=== PATIENT | male | born 1945 | race Caucasian/White ===

== ENCOUNTER 2018-12-17 09:57 | Day surgery (SDC) | payer MEDICARE ==
[2018-12-15 15:46] VITALS: BMI 29.9
--- NOTE | 2018-12-16 14:18 | HP ---
HISTORY AND PHYSICAL DATE OF SURGERY: 12/17/2018 Josué Diaz IS a 73-year-old patient seen with symptomatic right carpal tunnel syndrome. We discussed treatment options. He elected to proceed with decompression right median nerve. Consent was obtained. PAST MEDICAL HISTORY: Hypertension, hyperlipidemia, hypothyroidism, insulin-dependent diabetes. PAST SURGICAL HISTORY: Bilateral shoulder arthroscopy, laminectomy, right knee patellar tendon repair. DAILY MEDICATIONS: Meclizine, atorvastatin, hydrochlorothiazide, levothyroxine, metoprolol, Novolin. ALLERGIES: None. SOCIAL HISTORY: Denies tobacco use. PHYSICAL EVALUATION OF THE RIGHT HAND: He has positive carpal compression, carpal Tinel's causing numbness and tingling throughout the median nerve distribution. He has decreased sensation throughout the median nerve distribution. There is a good pulse present. He is nontender along the A1 salty areas. His distal neurovascular exam is intact. Radiographs of the right hand revealed mild osteoarthritis. An EMG of the upper extremities revealed carpal tunnel syndrome. IMPRESSION: Right carpal tunnel syndrome. PLAN: Decompression right median nerve. MMODL / IJN: [id number] /
[~2018-12-17 09:57] MED LIST: HYDROmorphone 0.5 MG/0.5 ML SYRINGE IVP PRN; MIDAZOLAM (PF) 2 MG/2 ML VIAL IV PRN; ceFAZolin IN SWFI 2 GM/20 ML SYRINGE IVP ONE
[2018-12-17 10:57] LABS: Glucose,Whole Blood 118 mg/dL (75-99)
[2018-12-17 10:58] VITALS: RESP 16; TEMP 97.3
[2018-12-17] MEDS ORDERED: LIDOCAINE 1% 20 ML VIAL (10MG/ML) FOR IV START INTRADERMA ONE (10:58)
[2018-12-17] MEDS: LACTATED RINGERS 1,000 ML IV SCH ×2 (10:58→11:49)
[2018-12-17] MEDS ORDERED: ONDANSETRON 4 MG/2 ML VIAL IVP ONE (10:59)
[2018-12-17] MEDS ORDERED: ROPIVACAINE 5 MG/ML 30 ML VIAL MISCELLANE ONE ×2 (11:51)
[2018-12-17] MEDS ORDERED: MIDAZOLAM 2 MG/2 ML VIAL ONE (11:51)
[2018-12-17] MEDS ORDERED: fentaNYL (PF) 50 MCG/ML 2 ML AMP ONE (11:51)
--- NOTE | 2018-12-17 12:23 | P.OP ---
Date of Procedure: 12/17/18 Preoperative Diagnosis: Right carpal tunnel syndrome Postoperative Diagnosis: same Procedure(s) Performed: Decompression right median nerve Anesthesia: MAC, local Surgeon: Kurtis Vidal Estimated Blood Loss (ml): 0 Pathology: none sent Condition: stable Disposition: PACU Indications for Procedure: 73-year-old patient seen was symptomatic right carpal tunnel syndrome. After having treatment options discussed, he elected to proceed with decompression. Operative Findings: see description of procedure Description of Procedure: Patient was taken to the operative suite. Patient received preoperative IV antibiotics. Well-padded tourniquet placed proximal right upper extremity. The right upper extremity was prepped and draped in the normal sterile orthopedic fashion. The extremity was elevated and tourniquet insufflated to 250. An incision was made being of the distal volar wrist crease extending distally approximately 3 cm in line with the fourth metacarpal sharply through skin. Dissection taken down through the palmar fascia to the transverse carpal ligament. I now incised the transverse carpal ligament. I released the transverse carpal ligament proximally and distally with blunt Metzenbaums. There was complete release of the ligament noted and good decompression of the nerve. We had good hemostasis. The skin was approximate nylon suture. The tourniquet was released with immediate capillary refill of all digits noted. Sterile dressings were applied. Sterile web roll and Kevin bandage were applied. Patient was awakened and transferred to recovery in stable condition.
[2018-12-17 13:00] VITALS: BP 152/81; PULSE 52
== END 2018-12-17 13:02 | disposition home or self-care (01) ==
LOC: OR 09:57
PROVIDERS: ATTEND Orthopaedic Surgery
DX: G56.01 Carpal tunnel syndrome, right upper limb (principal); I10 Essential (primary) hypertension; E78.5 Hyperlipidemia, unspecified; E03.9 Hypothyroidism, unspecified; E11.40 Type 2 diabetes mellitus with diabetic neuropathy, unspecified; Z79.4 Long term (current) use of insulin; I25.10 Atherosclerotic heart disease of native coronary artery without angina pectoris; M10.9 Gout, unspecified; Z95.1 Presence of aortocoronary bypass graft; Z79.899 Other long term (current) drug therapy; Z79.890 Hormone replacement therapy; Z88.6 Allergy status to analgesic agent
CPT/HCPCS: 64721; J2250; J2405; J3010; J2795

== ENCOUNTER 2019-01-15 06:04 | Day surgery (SDC) | payer MEDICARE ==
--- NOTE | 2019-01-14 17:24 | HP ---
HISTORY AND PHYSICAL DATE OF SURGERY: 01/15/2019 Josué Diaz is a 73-year-old patient seen with symptomatic left carpal tunnel syndrome along with a left ring finger trigger finger. Treatment options were discussed. He elected to proceed with surgical decompression of the nerve and release of the left ring finger. Consent regarding the procedure was obtained. PAST MEDICAL HISTORY: 1. Hypertension. 2. Hyperlipidemia. 3. Hypothyroidism. 4. Insulin-dependent diabetes. PAST SURGICAL HISTORY: 1. Laminectomy. 2. Bilateral shoulder arthroscopy. 3. Right knee patellar tendon repair. DAILY MEDICATIONS: 1. Meclizine. 2. Atorvastatin. 3. Hydrochlorothiazide. 4. Levothyroxine. 5. Metoprolol. 6. Novolin insulin. ALLERGIES: NONE. SOCIAL HISTORY: He denies tobacco use. PHYSICAL EVALUATION OF THE LEFT HAND: Positive carpal compression, carpal Tinel's causing numbness to the median nerve distribution. Tenderness along the A1 salty area, left ring finger with clicking and catching. Good perfusion. Some decreased sensation on the median nerve distribution. Good radial pulse present. EMG revealed carpal tunnel syndrome. IMPRESSION: 1. Left carpal tunnel syndrome. 2. Left ring finger trigger finger. PLAN: 1. Decompression of left median nerve. 2. Release A1 salty, left ring finger. MMODL / IJN: [id number] /
[~2019-01-15 06:04] MED LIST changes: +LACTATED RINGERS 1,000 ML IV SCH; +LIDOCAINE 1% 20 ML VIAL (10MG/ML) FOR IV START INTRADERMA PRN; -MIDAZOLAM (PF) 2 MG/2 ML VIAL IV PRN; +ONDANSETRON 4 MG/2 ML VIAL IVP ONE
[2019-01-15 07:04] VITALS: RESP 16; TEMP 97.7
[2019-01-15 07:14] LABS: Glucose,Whole Blood 153 mg/dL (75-99)
[2019-01-15 07:28] LABS: Basophils % (A) 1 %; Eosinophils # (A) 0.4 k/uL (0-0.7); Eosinophils % (A) 9 %; HCT 41.1 % (39.0-53.0); HGB 13.5 gm/dL (13.0-17.5); Lymphocytes # (A) 0.9 k/uL (1.0-4.8); Lymphocytes % (A) 21 %; MCH 31.3 pg (25.0-35.0); MCHC 32.9 g/dL (31.0-37.0); MCV 95.2 fL (80.0-100.0); Monocytes # (A) 0.5 k/uL (0-1.0); Monocytes % (A) 12 %; Neutrophils # (A) 2.3 k/uL (1.3-7.7); Neutrophils % (A) 55 %; Platelet Count 167 k/uL (150-450); RBC 4.32 m/uL (4.30-5.90); RDW 15.1 % (11.5-15.5); WBC 4.2 k/uL (3.8-10.6)
[2019-01-15] MEDS ORDERED: MIDAZOLAM 2 MG/2 ML VIAL ONE (07:30)
[2019-01-15] MEDS ORDERED: fentaNYL (PF) 50 MCG/ML 2 ML AMP ONE (07:30)
[2019-01-15] MEDS ORDERED: PROPOFOL 10 MG/ML 20 ML VIAL IV ONE (07:30)
[2019-01-15] MEDS ORDERED: LIDOCAINE 1% INJ 10MG/ML (20 ML MDV) ONE (07:30)
[2019-01-15 07:32] LABS: Calcium 9.2 mg/dL (8.4-10.2); Potassium 5.6 mmol/L (3.5-5.1)
[2019-01-15] MEDS ORDERED: ROPIVACAINE 5 MG/ML 30 ML VIAL MISCELLANE ONE (07:48)
--- NOTE | 2019-01-15 08:10 | P.OP ---
Date of Procedure: 01/15/19 Preoperative Diagnosis: 1. Left carpal tunnel syndrome 2. Left ring finger trigger finger Postoperative Diagnosis: Same Procedure(s) Performed: 1. Decompression left median nerve 2. Release A1 salty left ring finger Anesthesia: MAC, local Surgeon: Kurtis Vidal Estimated Blood Loss (ml): 1 Pathology: none sent Condition: stable Disposition: PACU Indications for Procedure: 73-year-old patient seen with symptomatic left carpal tunnel syndrome. He also symptomatic left ring finger trigger finger. We discussed options. He elected to proceed with surgical intervention. Consent regarding the procedure was obtained. Operative Findings: See description of procedure Description of Procedure: Patient was taken to the operative suite. The patient seemed preoperative IV antibiotics. The patient underwent IV sedation by the department of anesthesia. A well-padded tourniquet was placed proximal left upper extremity. Left upper extremity was prepped and draped in normal sterile orthopedic fashion. The proposed incision sites were infiltrated with local analgesic. Once sufficient local analgesia was noted the extremity was elevated and tourniquet was insufflated to 250. I made an incision beginning at the distal volar wrist crease extending distally along the lines of the fourth metacarpal 3 cm sharply through skin. Dissection was taken down through the palmar fascia to the transverse carpal ligament. I incised the transverse carpal ligament. I released it proximally and distally with blunt Metzenbaums. There was complete release of the transcarpal ligament and good decompression of the nerve. I now turned my attention to the A1 salty area of the left ring finger. An incision was made in that area. Dissection was taken down to the A1 salty area. I incised the A1 salty. I released approximately distally with blunt tenotomies. There was complete release of the A1 salty and good excursion of the tendon. Both wounds were irrigated with saline. Both incisions were proximal nylon suture. Sterile dressings were applied. The tourniquet was released with immediate capillary refill of all digits noted. Sterile webril and Kevin bandage were applied. The patient was then awakened, transferred to recovery stable condition.
[2019-01-15 08:32] LABS: Glucose,Whole Blood 139 mg/dL (75-99)
[2019-01-15 09:00] VITALS: BP 142/67; PULSE 54
== END 2019-01-15 09:20 | disposition home or self-care (01) ==
LOC: OR 06:04
PROVIDERS: ATTEND Orthopaedic Surgery
DX: G56.02 Carpal tunnel syndrome, left upper limb (principal); M65.342 Trigger finger, left ring finger; I10 Essential (primary) hypertension; E78.5 Hyperlipidemia, unspecified; E03.9 Hypothyroidism, unspecified; I25.10 Atherosclerotic heart disease of native coronary artery without angina pectoris; E07.9 Disorder of thyroid, unspecified; N28.9 Disorder of kidney and ureter, unspecified; E11.42 Type 2 diabetes mellitus with diabetic polyneuropathy; I25.2 Old myocardial infarction; M10.9 Gout, unspecified; Z95.1 Presence of aortocoronary bypass graft; Z79.82 Long term (current) use of aspirin; Z79.890 Hormone replacement therapy; Z79.4 Long term (current) use of insulin; Z79.899 Other long term (current) drug therapy; Z88.8 Allergy status to other drugs, medicaments and biological substances
CPT/HCPCS: 80048; 85025; 64721; 26055; J2250; J2405; J2001; J3010; J2795; J2704; J0690

== ENCOUNTER → 2019-07-02 | Outpatient (CLI) | payer MEDICARE ==
[2019-07-03 12:06] LABS: ANA Pattern Speckled; ANA Pattern 2 Nucleolar
== END ==
LOC: LABWHC1 10:59
PROVIDERS: ATTEND Dermatology Procedural Dermatology
DX: H61.031 Chondritis of right external ear (principal); L73.8 Other specified follicular disorders; L81.4 Other melanin hyperpigmentation; D18.01 Hemangioma of skin and subcutaneous tissue; M32.10 Systemic lupus erythematosus, organ or system involvement unspecified; M12.9 Arthropathy, unspecified; L82.1 Other seborrheic keratosis; B35.3 Tinea pedis; L57.0 Actinic keratosis; Z85.820 Personal history of malignant melanoma of skin
CPT/HCPCS: 36415; 86038; 86039

== ENCOUNTER → 2019-08-27 | Outpatient (CLI) | payer MEDICARE ==
--- NOTE | 2019-08-28 04:04 | CT ---
EXAMINATION TYPE: CT chest wo con DATE OF EXAM: 08/27/2019 COMPARISON: Correlation chest x-ray 08/28/2016 HISTORY: 73-year-old male abnormal CXR, Angina TECHNIQUE: Contiguous axial scanning of the chest without IV contrast. Coronal and sagittal reconstru ctions performed. CT DLP: 608 mGycm Automated exposure control for dose reduction was used. FINDINGS: Median sternotomy wires with post-CABG changes. Heart borderline to mildly enlarged without pericardial effusion. Aortic root mildly aneurysmal at 4.1 cm. Ascending aorta mildly aneurysmal at 4.4 cm. There is a dive rticulum off of the left vertebral artery directly from the aortic arch. Scattered mild atherosclerot ic calcifications are present especially within the aortic arch. No thoracic lymphadenopathy by CT size criteria. Some scattered hazy lower lung densities likely generalized atelectasis. No consolidation or pleural effusion. Visualized upper abdomen show splenic artery calcifications. Bilateral perinephric stranding likely s enescent change or secondary to underlying chronic kidney disease. Fat-containing midline epigastric hernia measuring 5.6 cm wide and 4.0 cm craniocaudal, refer to desmond nal image 4 and sagittal image 70. The tip of the xiphoid process curls anteriorly projecting in tear as well. Bones: Mild to moderate degenerative disc disease mid thoracic spine. Anterior endplate spondylosis m id to lower thoracic spine. IMPRESSION: 1. NO ACUTE PULMONARY PROCESS. POST-CABG CHANGES WITH BORDERLINE TO MILD CARDIOMEGALY. 2. IF THE PATIENT'S OUTSIDE ABNORMAL CHEST X-RAY IS MADE AVAILABLE, THE PRESENT EXAMINATION CAN BE RE VIEWED WITH CORRELATION. 3. MILD ANEURYSM ASCENDING AORTA MEASURING UP TO 4.4 CM. 4. SMALL TO MODERATE-SIZED FATTY MIDLINE EPIGASTRIC HERNIA MEASURING 5.6 CM WIDE.
== END | disposition home or self-care (01) ==
LOC: RADCTMAIN 16:04
PROVIDERS: ATTEND Internal Medicine Rheumatology
DX: I71.2 Thoracic aortic aneurysm, without rupture (principal); I51.7 Cardiomegaly; Z95.1 Presence of aortocoronary bypass graft; R93.89 Abnormal findings on diagnostic imaging of other specified body structures
CPT/HCPCS: 71250

== ENCOUNTER 2020-06-27 11:17 | Inpatient (IN) | payer MEDICARE ==
[2020-06-27] MEDS ORDERED: MECLIZINE 12.5 MG TAB PO PRN (12:29)
[2020-06-27] MEDS ORDERED: ONDANSETRON ODT 4 MG TAB PO PRN (12:29)
[2020-06-27] MEDS ORDERED: SODIUM CHLORIDE 0.9% IVPB STA (12:55)
[2020-06-27] MEDS ORDERED: METHYLPREDNISOLONE SOD SUCC IVPB STA (12:55)
[2020-06-27] MEDS ORDERED: methylPREDNISolone SOD SUCCI 125 MG/2 ML VIAL IVP ONE (13:15)
--- NOTE | 2020-06-27 13:32 | P.PN ---
Progress Note - Text Progress Note Date: 06/27/20 Mr. Diaz was originally referred to our practive, primary machine repairer Dr. Jorge Kwan with abnormal serum free light chain level found during laboratory work up for possible underlying connective tissue disorders. On 08/12/2019,serum free kappa was 82.5 mg/l and serum free kappa level was 1.76 mg/L,ratio 1.76,protein electrophoresis did not reveal any evidence of monoclonal protein. He has had recurrent skin lesions which were biopsied by Dr Morin, known to have CKD his last creatinine was 1.9 on 04/15/20. His last Platelet count before today was 148K, on the same day in March. He has no documented abnormal platelets prior to today in which when seen in office platelet count is 2K. Therefore Dr. Kwan has directly admitted patient for ITP diagnosis. HX: Diabetes, CAD, HTN, HLD, Melanoma in situ, COnnective tissue disorder, Gout, CKD, Monoclonal gammopathy, peripheral neuropathy SXHX: CABG, Ankle, Knee, shoulder arthroscopy, Back Sx, excision of Melanoma via Mohls Social: Negative for Tobacco (lifelong), ETOH, Illicit drug use Allergies: Ibuprofen Assessment: 1. New Diagnosis Idiopathic Thrombycytopenia Purpura 2. Monoclonal Gammopathy 3. Connective Tissue Disorder 4. Chronic Kidney disease stage 3 per JAN 5. Diabetes Mellitus 6. CAD, HTN, HLD Plan: 1. Further work-up via bloodwork - ordered 2. Medical Management to assist with Diabetes and other controlled medical problems 3. Stat Solumedrol 120mg Now, then 60mg q6 4. PPI - Ordered 5. No ASA, Anticoagulation, NSAID, FISH oils at this time 6. Stop Plaquenil 7. Bleed Precautions 8. MUST give first dose SOLU medrol Prior to Transfusion of platelets 9. SDP (irradiated preferred until definitive diagnosis) 10. IVIG 0.5grams/kg daily x2 ordered Aimee MCKEON
[2020-06-27 13:55] LABS: Partial Thromboplastin Time 24.1 sec (22.0-30.0); Prothrombin Time 10.5 sec (9.0-12.0)
[2020-06-27 13:57] LABS: Albumin 3.8 g/dL (3.5-5.0); Calcium 8.7 mg/dL (8.4-10.2); Potassium 5.5 mmol/L (3.5-5.1); Total Bilirubin 0.6 mg/dL (0.2-1.3); Total Protein 6.9 g/dL (6.3-8.2); Uric Acid 3.2 mg/dL (3.5-8.5)
[2020-06-27] MEDS: GABAPENTIN 300 MG CAP PO SCH ×2 (14:17→18:10)
--- NOTE | 2020-06-27 14:45 | P.CONS ---
History of Present Illness - Reason for Consult Consult date: 06/27/20 Medical Co-management - Chief Complaint Thrombocytopenia - History of Present Illness 74-year-old man with past medical history of hypertension, hyperlipidemia, CAD status post CABG, hypothyroidism, connective tissue disease, CKD stage III presented as a direct admission from oncology clinic where he was found to have platelets that were very low. Patient tells me that for the last week he's been experiencing a new rash in his legs, easy bruising, easy bleeding while he brushes as well as many nosebleeds. This is never been an issue before. He was seen by his primary care physician last week, and was told to follow with oncology today. At his PCPs office his platelets were 66 down from 148 in late March; today, repeat CBC showed platelets of 2000 prompting direct admission for suspected ITP. Medicine was consulted by oncology service for management of comorbid medical issues. Patient's review of systems is positive for rash, easy bleeding/bruising. Patient's resistance is negative for fevers, chills, nausea, vomiting, just become significant, palpitations, dysuria, dyschezia, loss of appetite, numbness/weakness, visual changes, headache. On arrival patient is afebrile, hemodynamically stable. Admission labs are pending. Review of Systems All Systems reviewed and pertinent positives and negatives noted in HPI, all other symptoms are negative Past Medical History Past Medical History: Coronary Artery Disease (CAD), Diabetes Mellitus, Hearing Disorder / Deafness, Hyperlipidemia, Hypertension, Myocardial Infarction ([place]), Renal Disease Additional Past Medical History / Comment(s): melanoma. gout. neuropathy. chronic kidney failure Last Myocardial Infarction Date:: unk History of Any Multi-Drug Resistant Organisms: None Reported Past Surgical History: Back Surgery, Coronary Bypass/CABG, Orthopedic Surgery Additional Past Surgical History / Comment(s): 5 way bypass 3 yrs. ago, bilateral shoulder rotator cuff repair,. patella tendon repaired right knee, carpal tunnel repair right Past Anesthesia/Blood Transfusion Reactions: No Reported Reaction Past Psychological History: PTSD Additional Psychological History / Comment(s): never officially diagnosed or medicated Past Alcohol Use History: Rare Past Drug Use History: None Reported - Past Family History Mother Family Medical History: Congestive Heart Failure (CHF), Diabetes Mellitus, Myocardial Infarction ([place]) Father Family Medical History: Cancer, Myocardial Infarction ([place]) Additional Family Medical History / Comment(s): squamous cell skin cancer Sister(s) Family Medical History: Cancer Additional Family Medical History / Comment(s): squamous and basal cell skin cancer Medications and Allergies Home Medications Medication Instructions Recorded Confirmed Type Allopurinol [Zyloprim] 300 mg PO DAILY 08/28/16 01/15/19 History Aspirin EC [Ecotrin Low Dose] 162 mg PO DAILY 08/28/16 01/15/19 History Atorvastatin [Lipitor] 40 mg PO HS 08/28/16 01/15/19 History Gabapentin [Neurontin] 400 mg PO AC-TID 08/28/16 01/15/19 History Insulin NPH Hum/Reg Insulin Hm 30 units SQ HS 08/28/16 01/15/19 History [NovoLIN 70-30 100 UNIT/ML VIAL] Insulin NPH Hum/Reg Insulin Hm 40 units SQ QAM 08/28/16 01/15/19 History [NovoLIN 70-30 100 UNIT/ML VIAL] Levothyroxine Sodium [Synthroid] 100 mcg PO DAILY 08/28/16 01/15/19 History Meclizine [Antivert] 12.5 mg PO BID PRN 08/28/16 01/15/19 History Metoprolol Tartrate [Lopressor] 25 mg PO BID 08/28/16 01/15/19 History [place]-3 Fatty Acids/Fish Oil [Fish 1 cap PO DAILY 08/28/16 01/15/19 History Oil 1,000 mg Softgel] Ondansetron Odt [Zofran ODT] 4 mg PO Q8HR PRN #15 tab 08/28/16 01/15/19 Rx hydrALAZINE HCL [Apresoline] 25 mg PO TID 08/28/16 01/15/19 History hydroCHLOROthiazide [Hydrodiuril] 37.5 mg PO DAILY 08/28/16 01/15/19 History Cholecalciferol (Vitamin D3) 2,000 unit PO DAILY 12/15/18 01/15/19 History [Vitamin D3] Colchicine 0.6 mg PO DAILY PRN 12/15/18 01/15/19 History Gabapentin [Neurontin] 800 mg PO HS 12/15/18 01/15/19 History Sodium Bicarbonate Tab 650 mg PO BID 12/15/18 01/15/19 History traMADol HCl [Ultram] 50 mg PO Q6H PRN #12 tab 01/15/19 Rx Allergies Allergy/AdvReac Type Severity Reaction Status Date / Time ibuprofen [From Motrin] AdvReac HEADACHES Verified 01/15/19 06:43 Physical Exam Osteopathic Statement: *. No significant issues noted on an osteopathic structural exam other than those noted in the History and Physical/Consult. Vitals: Vital Signs Temp Pulse Resp BP Pulse Ox 06/27/20 13:31 98.1 F 64 18 130/67 95 Intake and Output 06/26/20 06/27/20 06/27/20 22:59 06:59 14:59 Other: Weight 108.6 kg Gen: awake, alert HEENT: normocephalic, atraumatic, good hearing acuity, moist mucous membranes Resp: CTAB, good air exchange, no accessory muscle use, no wheezes, crackles, rh onchi CVS: good distal perfusion x 4, RRR, blowing systolic murmur, clicks, gallops GI: soft, NTTP, ND : no SPT, no CVAT, benítez catheter not present MSK: no pitting edema, no clubbing Neuro: non-focal, no sensory deficits, appropriate tone Psych: cooperative, euthymic mood Results CBC & Chem 7: 06/27/20 13:00 Labs: Abnormal Lab Results - Last 24 Hours (Table) 06/27/20 Range/Units 13:00 Potassium 5.5 H (3.5-5.1) mmol/L Chloride 109 H (98-107) mmol/L Carbon Dioxide 20 L (22-30) mmol/L BUN 56 H (9-20) mg/dL Creatinine 2.14 H (0.66-1.25) mg/dL Glucose 103 H (74-99) mg/dL Uric Acid 3.2 L (3.5-8.5) mg/dL Assessment and Plan Assessment: 1. Severe thrombocytopenia 2. Hypertension, essential 3. Hyperlipidemia 4. CAD status post CABG 5. Hypothyroidism 6. CKD stage III 7. Connective tissue disease 74-year-old man with past medical history of HTN/HLD/CAD, hypothyroidism, CTB stage III, connective tissue disease presented with thrombocytopenia; medicine consulted by oncology service for management of comorbid issues. Plan: medicine consulting will await confirmation of home medications, can continue all at home doses avoid NSAIDs, heparin products insulin sliding scale will restart home insulin NPH/Humalog 40/30 qAM/qHS regimen remainder of care per primary team We appreciate you involving us in the care of this patient, please do not hesitate to contact us if there are any further questions or clarifications.
[2020-06-27] MEDS ORDERED: IMMUNE GLOBULIN (GAMMAGARD) 30 GM in EMPTY BAG 1 BAG IV ONE (15:00)
[2020-06-27] MEDS ORDERED: IMMUNE GLOBULIN (GAMMAGARD) 20 GM in EMPTY BAG 1 BAG IV ONE (15:00)
--- NOTE | 2020-06-27 15:08 | XR ---
EXAMINATION TYPE: XR chest 2V DATE OF EXAM: 06/27/2020 COMPARISON: 08/28/2016 TECHNIQUE: PA and lateral views submitted. HISTORY: Shortness of breath FINDINGS: Postoperative changes with cardiomegaly. Subsegmental changes at both lung bases with tiny effusion. Biapical pleural thickening with coarsened interstitium. Hypertrophic and degenerative change of the spine. IMPRESSION: 1. Correlate for mild CHF versus interstitial pneumonitis.
[2020-06-27] MEDS ORDERED: hydrALAZINE HCL 25 MG TAB PO SCH (16:00)
[2020-06-27 17:19] LABS: Glucose,Whole Blood 94 mg/dL (75-99)
[2020-06-27 17:23] LABS: Appearance,Urine Clear (Clear); Bilirubin,Urine Negative (Negative); Blood,Urine Trace (Negative); Color,Urine Yellow; Glucose,Urine (UA) Negative (Negative); Hyaline Casts,Urine 4 /lpf (0-2); Ketones,Urine Negative (Negative); Leukocyte Esterase,Urine Negative (Negative); Mucus,Urine Rare /hpf; Nitrite,Urine Negative (Negative); Protein,Urine 1+ (Negative); RBC,Urine 7 /hpf (0-5); Specific Gravity,Urine 1.015 (1.001-1.035); Urobilinogen,Urine <2.0 mg/dL (<2.0); WBC,Urine <1 /hpf (0-5)
[2020-06-27] MEDS ORDERED: ISOSORBIDE DINITRATE 20 MG TAB PO SCH (18:00)
[2020-06-27] MEDS: PANTOPRAZOLE 40 MG TABLET PO SCH (18:09)
[2020-06-27] MEDS: methylPREDNISolone SOD SUCCI 125 MG/2 ML VIAL IV SCH (18:26)
[2020-06-27] MEDS: hydrALAZINE HCL 25 MG TAB PO SCH (18:27)
[2020-06-27 20:06] LABS: Glucose,Whole Blood 218 mg/dL (75-99)
[2020-06-27] MEDS: ATORVASTATIN 80 MG TAB PO SCH (20:10)
[2020-06-27] MEDS: SODIUM BICARBONATE TAB 650 MG TAB PO SCH (20:10)
[2020-06-27] MEDS: METOPROLOL TARTRATE 25 MG TAB PO SCH (20:10)
[2020-06-27 21:22] LABS: Protein, Total 6.7 g/dL (6.2-8.2)
[2020-06-28] MEDS: GABAPENTIN 300 MG CAP PO SCH ×3 (00:17→12:25)
[2020-06-28] MEDS: hydrALAZINE HCL 25 MG TAB PO SCH ×2 (00:17→07:43)
[2020-06-28] MEDS: methylPREDNISolone SOD SUCCI 125 MG/2 ML VIAL IV SCH ×5 (00:44→23:53)
[2020-06-28 01:33] LABS: Folate, Serum 9.9 ng/mL
[2020-06-28] MEDS: LEVOTHYROXINE 100 MCG TAB PO SCH (05:53)
[2020-06-28 07:10] LABS: Glucose,Whole Blood 181 mg/dL (75-99)
[2020-06-28] MEDS: allopurinoL 100 MG TAB PO SCH (07:42)
[2020-06-28] MEDS: CHOLECALCIFEROL 1,000 UNIT TAB PO SCH (07:42)
[2020-06-28] MEDS: SODIUM BICARBONATE TAB 650 MG TAB PO SCH ×2 (07:43→20:19)
[2020-06-28] MEDS: METOPROLOL TARTRATE 25 MG TAB PO SCH ×2 (07:43→20:19)
[2020-06-28] MEDS: PANTOPRAZOLE 40 MG TABLET PO SCH ×2 (07:43→17:51)
[2020-06-28 08:45] LABS: Basophils % (A) 0 %; Eosinophils % (A) 0 %; HCT 40.7 % (39.0-53.0); Lymphocytes # (A) 0.6 k/uL (1.0-4.8); Lymphocytes % (A) 13 %; MCH 30.8 pg (25.0-35.0); MCHC 31.9 g/dL (31.0-37.0); MCV 96.5 fL (80.0-100.0); Mean Platelet Volume 11.7; Monocytes % (A) 1 %; Neutrophils # (A) 3.9 k/uL (1.3-7.7); Neutrophils % (A) 86 %; RBC 4.22 m/uL (4.30-5.90); RDW 15.3 % (11.5-15.5); WBC 4.6 k/uL (3.8-10.6)
[2020-06-28 08:47] LABS: Platelet Count 15 k/uL (150-450)
[2020-06-28 09:11] LABS: Albumin 3.9 g/dL (3.5-5.0); Calcium 8.6 mg/dL (8.4-10.2); Total Bilirubin 0.8 mg/dL (0.2-1.3)
[2020-06-28 10:12] LABS: Large Platelets Present
--- NOTE | 2020-06-28 10:42 | P.NPCON ---
History of Present Illness - Reason for Consult chronic renal failure - History of Present Illness Reason for consultation: Acute kidney injury on chronic kidney disease History of present illness: Patient is a 74-year-old male seen in renal consultation for acute kidney injury on chronic kidney disease. Patient has chronic kidney disease stage III Baseline creatinine in the range of 1.8-1.9. It was elevated at 2.1 on admission and is 1.88 today. Patient was sent to the hospital as a direct admission for trauma cytopenia. He was diagnosed with ITP and is currently receiving IVIG as well as steroids. Hematology is following. Patient was complaining of easy bruising prior to admission. Patient states he was recently treated with antibiotics for lower extremity cellulitis. No fever or chills. No vomiting or diarrhea. Denies use of nonsteroidals. He does have long- standing history of diabetes mellitus and has been maintained on insulin for nearly 10 years now. He was also noted to have elevated free H Eanes with no evidence of monoclonal protein was noted on immunofixation. Patient also states he has history of lupus and is maintained on Plaquenil outpatient. He does follow with rheumatology outpatient. He denies any gross hematuria or dysuria. UA revealed 1+ proteinuria with 7 RBCs. Blood pressures on the higher side. Denies family history of renal disease. Vital signs are stable. General: The patient appeared well nourished and normally developed. HEENT: Head exam is unremarkable. Neck is without jugular venous distension. LUNGS: Lungs are clear to auscultation and percussion. Breath sounds decreased. HEART: Rate and Rhythm are regular. ABDOMEN: Soft, nontender. EXTREMITITES: No edema. 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, mononucal gammopathy, melanoma removed from bilateral arms/scalp, gout bilateral feet/toes/knees, arthritis in multiple joints, limited ROM bilateral shoulders, migraines, IDDM type II, neuropathy bilateral legs/feet and hands, [place] per EKG, CKD stage III, balance issues, vertigo, pst L lower leg cellulitis, hypothyroid, beginnings bilateral eye cataracts Last Myocardial Infarction Date:: unk History of Any Multi-Drug Resistant Organisms: None Reported Past Surgical History: Back Surgery, Coronary Bypass/CABG, Heart Catheterization, Orthopedic Surgery Additional Past Surgical History / Comment(s): 2015 CABG 4 vessel, melanoma removed bilateral arms/scalp, bilateral carpal tunnel releases and L ring finger trigger finger release, R knee patella tendon repair, low back surgery, bilateral shoulders RCR, colonoscopies/benign polyps removed. Past Anesthesia/Blood Transfusion Reactions: No Reported Reaction Smoking Status: Never smoker - Past Family History Mother Family Medical History: Congestive Heart Failure (CHF), Diabetes Mellitus, Myocardial Infarction ([place]) Additional Family Medical History / Comment(s): Mother had [place] found on EKG when she was in her 40s. Father Family Medical History: Cancer, Myocardial Infarction ([place]), Renal Disease Additional Family Medical History / Comment(s): squamous cell skin cancer, ESRD, at 89yrs from [place] Sister(s) Family Medical History: Cancer Additional Family Medical History / Comment(s): squamous and basal cell skin cancer Medications and Allergies Home Medications Medication Instructions Recorded Confirmed Type Allopurinol [Zyloprim] 300 mg PO DAILY 08/28/16 06/27/20 History Gabapentin [Neurontin] 400 mg PO AC-TID 08/28/16 06/27/20 History Insulin NPH Hum/Reg Insulin Hm 30 units SQ HS 08/28/16 06/27/20 History [NovoLIN 70-30 100 UNIT/ML VIAL] Insulin NPH Hum/Reg Insulin Hm 40 units SQ QAM 08/28/16 06/27/20 History [NovoLIN 70-30 100 UNIT/ML VIAL] Levothyroxine Sodium [Synthroid] 100 mcg PO DAILY 08/28/16 06/27/20 History Metoprolol Tartrate [Lopressor] 25 mg PO Q12H 08/28/16 06/27/20 History hydrALAZINE HCL [Apresoline] 25 mg PO TID 08/28/16 06/27/20 History Cholecalciferol (Vitamin D3) 2,000 unit PO DAILY 12/15/18 06/27/20 History [Vitamin D3] Colchicine 0.6 - 1.2 mg PO DIRECTED PRN 12/15/18 06/27/20 History Gabapentin [Neurontin] 800 mg PO HS 12/15/18 06/27/20 History Sodium Bicarbonate Tab 650 mg PO TID 12/15/18 06/27/20 History Atorvastatin Calcium [Lipitor] 40 mg PO HS 06/27/20 06/27/20 History Hydroxychloroquine Sulfate 200 mg PO BID 06/27/20 06/27/20 History [Plaquenil] Meclizine HCl 25 mg PO TID PRN 06/27/20 06/27/20 History Ondansetron [Zofran] 4 mg PO DAILY PRN 06/27/20 06/27/20 History Allergies Allergy/AdvReac Type Severity Reaction Status Date / Time ibuprofen [From Motrin] AdvReac HEADACHES Verified 06/27/20 14:38 Physical Exam Vitals: Vital Signs Temp Pulse Pulse Resp BP BP Pulse Ox 06/28/20 05:50 97.6 F 68 18 178/65 96 06/27/20 20:29 97.9 F 67 18 183/86 95 06/27/20 18:29 97.9 F 65 18 173/73 95 06/27/20 17:51 98.3 F 67 18 199/89 06/27/20 17:21 97.7 F 60 18 173/79 06/27/20 17:05 97.8 F 58 L 16 174/79 06/27/20 13:31 98.1 F 64 18 130/67 95 Intake and Output 06/27/20 06/28/20 06/28/20 22:59 06:59 14:59 Intake Total 1243 0 Balance 1243 0 Intake: Intake, IV Titration 590 Amount Immune Globulin ( 590 Gammagard) 20 gm In Empty Bag 1 bag @ Per Protocol IV .Q0M ONE Rx#: [id number] Oral 350 0 Blood Product 303 Platelet Irr Pheresis 2 303 Acda Unit [id number] Other: Voiding Method Toilet Toilet Toilet # Voids 1 1 Weight 108.6 kg Results - Lab Results Most recent lab results Calcium 8.6 mg/dL (8.4-10.2) 06/28/20 08:26 06/28/20 08:26 06/28/20 08:26 Assessment and Plan Plan: Assessment: 1. Mild acute kidney injury mostly prerenal. Improved. Creatinine was 2.1 on admission and is 1.88 today. 2. Chronic kidney disease stage III Baseline creatinine in the range of 1.8 1.9. Etiology is mostly diabetic kidney disease. However he is also noted to have RBCs in the urine and lupus nephritis is also in the differential. 3. Newly diagnosed ITP maintain on IVIG and IV steroids per hematology. 4. Monoclonal gammopathy. 5. Metabolic acidosis secondary to chronic kidney disease. Maintained on oral sodium bicarbonate. 6. Insulin-dependent diabetes mellitus. 7. Hypertension with chronic kidney disease. Partially due to steroids. 8. History of lupus maintained on Plaquenil outpatient. Plan: Repeat urinalysis. Quantify proteinuria. Check serologies. Check renal ultrasound. Increase hydralazine to 50 mg 3 times daily. Continue to monitor renal function and urine output. Thank you for the consultation. I will continue to follow the patient with you during his hospital stay.
[2020-06-28] MEDS: INSULIN DETEMIR (LEVEMIR) 100 UNIT/ML SYR SQ SCH (10:43)
[2020-06-28 11:11] LABS: Free Kappa Lt Chain Qnt, Serum 9.94 mg/dL (0.33-1.94); Immunoglobulin M 54.1 mg/dL (40.0-280.0)
[2020-06-28] MEDS: ACETAMINOPHEN TAB 325 MG TAB PO PRN ×2 (11:31→19:12)
[2020-06-28 12:01] LABS: Appearance,Urine Clear (Clear); Bilirubin,Urine Negative (Negative); Blood,Urine Small (Negative); Color,Urine Yellow; Glucose,Urine (UA) 3+ (Negative); Hyaline Casts,Urine 1 /lpf (0-2); Ketones,Urine Negative (Negative); Leukocyte Esterase,Urine Negative (Negative); Nitrite,Urine Negative (Negative); Protein,Urine 2+ (Negative); RBC,Urine 1 /hpf (0-5); Specific Gravity,Urine 1.014 (1.001-1.035); Urobilinogen,Urine <2.0 mg/dL (<2.0)
--- NOTE | 2020-06-28 12:13 | US ---
EXAMINATION TYPE: US kidneys/renal and bladder DATE OF EXAM: 06/28/2020 COMPARISON: NONE CLINICAL HISTORY: lor. LOR EXAM MEASUREMENTS: Right Kidney: 10.6 x 5.1 x 5.0 cm Left Kidney: 10.5 x 5.2 x 3.4 cm Right Kidney: Lobulated cortex Left Kidney: Lobulated cortex Bladder: Anechoic Bilateral Jets seen: yes There is no evidence for hydronephrosis at this point in time. No nephrolithiasis is seen. No jackie s are identified, cortical medullary differentiation is maintained. The urinary bladder is anechoic. Bilateral ureteral jets are seen. IMPRESSION: Renal sizes as described. No hydronephrosis.
[2020-06-28 12:40] LABS: Glucose,Whole Blood 244 mg/dL (75-99)
--- NOTE | 2020-06-28 13:20 | P.PN ---
Subjective Progress Note Date: 06/28/20 No new complaints at this time. Patient was having a headache, similar nature to yesterday, no focal deficits. Objective - Vital Signs Vital signs: Vital Signs Temp 97.9 F 06/28/20 12:13 Pulse 65 06/28/20 12:13 Resp 17 06/28/20 12:13 BP 169/66 06/28/20 12:13 Pulse Ox 94 L 06/28/20 12:13 Intake & Output 06/27/20 06/28/20 06/28/20 18:59 06:59 18:59 Intake Total 303 940 Balance 303 940 Weight 108.6 kg Intake: Intake, IV Titration 590 Amount Immune Globulin ( 590 Gammagard) 20 gm In Empty Bag 1 bag @ Per Protocol IV .Q0M ONE Rx#: [id number] Oral 350 Blood Product 303 Platelet Irr Pheresis 2 303 Acda Unit [id number] Other: Voiding Method Toilet Toilet Toilet # Voids 1 1 # Bowel Movements 1 - Exam Gen: awake, alert HEENT: normocephalic, atraumatic, good hearing acuity, moist mucous membranes Resp: CTAB, good air exchange, no accessory muscle use, no wheezes, crackles, rhonchi CVS: good distal perfusion x 4, RRR, no murmurs, clicks, gallops GI: soft, NTTP, ND : no SPT, no CVAT, benítez catheter not present MSK: no pitting edema, no clubbing Neuro: non-focal, no sensory deficits, appropriate tone Psych: cooperative, euthymic mood - Labs CBC & Chem 7: 06/28/20 08:26 06/28/20 08:26 Labs: Abnormal Lab Results - Last 24 Hours (Table) 06/27/20 06/27/20 06/27/20 Range/Units 13:00 13:00 16:50 RBC (4.30-5.90) m/uL Plt Count (150-450) k/uL Lymphocytes # (1.0-4.8) k/uL Sodium (137-145) mmol/L Potassium 5.5 H (3.5-5.1) mmol/L Chloride 109 H (98-107) mmol/L Carbon Dioxide 20 L (22-30) mmol/L BUN 56 H (9-20) mg/dL Creatinine 2.14 H (0.66-1.25) mg/dL Glucose 103 H (74-99) mg/dL POC Glucose (mg/dL) (75-99) mg/dL Uric Acid 3.2 L (3.5-8.5) mg/dL Urine Protein 1+ H (Negative) Urine Glucose (UA) (Negative) Urine Blood Trace H (Negative) Urine RBC 7 H (0-5) /hpf Hyaline Casts 4 H (0-2) /lpf Urine Mucus Rare H (None) /hpf Free [place] LC, Quant 9.94 H (0.33-1.94) mg/dL Free [place] LC, Quant 5.36 H (0.57-2.63) mg/dL 06/27/20 06/28/20 06/28/20 Range/Units 20:00 07:03 08:26 RBC (4.30-5.90) m/uL Plt Count (150-450) k/uL Lymphocytes # (1.0-4.8) k/uL Sodium 133 L (137-145) mmol/L Potassium (3.5-5.1) mmol/L Chloride (98-107) mmol/L Carbon Dioxide 19 L (22-30) mmol/L BUN 56 H (9-20) mg/dL Creatinine 1.88 H (0.66-1.25) mg/dL Glucose 265 H (74-99) mg/dL POC Glucose (mg/dL) 218 H 181 H (75-99) mg/dL Uric Acid (3.5-8.5) mg/dL Urine Protein (Negative) Urine Glucose (UA) (Negative) Urine Blood (Negative) Urine RBC (0-5) /hpf Hyaline Casts (0-2) /lpf Urine Mucus (None) /hpf Free [place] LC, Quant (0.33-1.94) mg/dL Free [place] LC, Quant (0.57-2.63) mg/dL 06/28/20 06/28/20 06/28/20 Range/Units 08:26 11:27 12:39 RBC 4.22 L (4.30-5.90) m/uL Plt Count 15 L* D (150-450) k/uL Lymphocytes # 0.6 L (1.0-4.8) k/uL Sodium (137-145) mmol/L Potassium (3.5-5.1) mmol/L Chloride (98-107) mmol/L Carbon Dioxide (22-30) mmol/L BUN (9-20) mg/dL Creatinine (0.66-1.25) mg/dL Glucose (74-99) mg/dL POC Glucose (mg/dL) 244 H (75-99) mg/dL Uric Acid (3.5-8.5) mg/dL Urine Protein 2+ H (Negative) Urine Glucose (UA) 3+ H (Negative) Urine Blood Small H (Negative) Urine RBC (0-5) /hpf Hyaline Casts (0-2) /lpf Urine Mucus (None) /hpf Free [place] LC, Quant (0.33-1.94) mg/dL Free [place] LC, Quant (0.57-2.63) mg/dL Assessment and Plan Assessment: 1. Severe thrombocytopenia 2. Hypertension, essential 3. Hyperlipidemia 4. CAD status post CABG 5. Hypothyroidism 6. CKD stage III 7. Connective tissue disease 74-year-old man with past medical history of HTN/HLD/CAD, hypothyroidism, CTB stage III, connective tissue disease presented with thrombocytopenia; medicine consulted by oncology service for management of comorbid issues. Plan: medicine consulting med rec completed avoid NSAIDs, heparin products insulin sliding scale will convert home insulin NPH/Humalog 40/30 qAM/qHS regimen to 20U lantus daily remainder of care per primary team We appreciate you involving us in the care of this patient, please do not hesitate to contact us if there are any further questions or clarifications.
[2020-06-28 14:04] LABS: Albumin 3.6 g/dL (3.80-4.90); Gamma Globulin 1.24 g/dL (0.70-1.50)
[2020-06-28 14:25] LABS: T4/T8 Ratio (CD4:CD8) 2.8 (1.0-3.7)
[2020-06-28 14:49] LABS: Protein/Creatinine Ratio,Urine 2.047
[2020-06-28] MEDS ORDERED: IMMUNE GLOBULIN (GAMMAGARD) 20 GM in EMPTY BAG 1 BAG IV ONE ×2 (15:00→20:00)
[2020-06-28] MEDS: hydrALAZINE HCL 50 MG TAB PO SCH ×2 (16:17→20:19)
[2020-06-28 16:19] LABS: % Iron Saturation 31.15 (15.00-50.00)
[2020-06-28 16:27] LABS: Ferritin 98.2 ng/mL (22.0-322.0)
[2020-06-28 16:54] LABS: Glucose,Whole Blood 338 mg/dL (75-99)
[2020-06-28 19:27] LABS: Glucose,Whole Blood 377 mg/dL (75-99)
[2020-06-28] MEDS: INSULIN ASPART (NovoLOG) 100 UNIT/ML VIAL SQ SCH (20:11)
[2020-06-28] MEDS: ATORVASTATIN 80 MG TAB PO SCH (20:19)
[2020-06-28 20:44] VITALS: RESP 18
[2020-06-28] MEDS ORDERED: GABAPENTIN 400 MG CAP PO SCH ×2 (21:00→22:00)
--- NOTE | 2020-06-28 22:12 | P.HPIM ---
History of Present Illness H&P Date: 06/28/20 Chief Complaint: Platelet Count 2K on Admission, Admitted from Office Mr. Diaz is a pleasant male patient who follows with Dr. Kwan for monitoring of his known monoclonal gammopathy. He was seen and evaluated in the office on 06/27/20 and he was noted to have a platelet count of 2K. Dr. Kwan has directly admitted patient for treatment of ITP. Solu medrol was given (120mg), then continued at 60mg [id number], along with PPI. IVIG was ordered (initially ordered for 50grams dailyx2, although his creatinine is still quite elevated despite IV fluids therefore day two was split further into 20grams and (day 3) will be 30grams given his creatinine continues to improve. He denies any bleeding, fevers, SOB, N/V. Today his platelets have improved to 12K. 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, mononucal gammopathy, melanoma removed from bilateral arms/scalp, gout bilateral feet/toes/knees, arthritis in multiple joints, limited ROM bilateral shoulders, migraines, IDDM type II, neuropathy bilateral legs/feet and hands, AR per EKG, CKD stage III, balance issues, vertigo, pst L lower leg cellulitis, hypothyroid, beginnings bilateral eye cataracts Last Myocardial Infarction Date:: unk History of Any Multi-Drug Resistant Organisms: None Reported Past Surgical History: Back Surgery, Coronary Bypass/CABG, Heart Catheterization, Orthopedic Surgery Additional Past Surgical History / Comment(s): 2015 CABG 4 vessel, melanoma removed bilateral arms/scalp, bilateral carpal tunnel releases and L ring finger trigger finger release, R knee patella tendon repair, low back surgery, bilateral shoulders RCR, colonoscopies/benign polyps removed. Past Anesthesia/Blood Transfusion Reactions: No Reported Reaction Smoking Status: Never smoker - Past Family History Mother Family Medical History: Congestive Heart Failure (CHF), Diabetes Mellitus, Myocardial Infarction (AR) Additional Family Medical History / Comment(s): Mother had AR found on EKG when she was in her 40s. Father Family Medical History: Cancer, Myocardial Infarction (AR), Renal Disease Additional Family Medical History / Comment(s): squamous cell skin cancer, ESRD, at 89yrs from AR Sister(s) Family Medical History: Cancer Additional Family Medical History / Comment(s): squamous and basal cell skin cancer Medications and Allergies Home Medications Medication Instructions Recorded Confirmed Type Allopurinol [Zyloprim] 300 mg PO DAILY 08/28/16 06/27/20 History Gabapentin [Neurontin] 400 mg PO AC-TID 08/28/16 06/27/20 History Insulin NPH Hum/Reg Insulin Hm 30 units SQ HS 08/28/16 06/27/20 History [NovoLIN 70-30 100 UNIT/ML VIAL] Insulin NPH Hum/Reg Insulin Hm 40 units SQ QA 08/28/16 06/27/20 History [NovoLIN 70-30 100 UNIT/ML VIAL] Levothyroxine Sodium [Synthroid] 100 mcg PO DAILY 08/28/16 06/27/20 History Metoprolol Tartrate [Lopressor] 25 mg PO Q12H 08/28/16 06/27/20 History hydrALAZINE HCL [Apresoline] 25 mg PO TID 08/28/16 06/27/20 History Cholecalciferol (Vitamin D3) 2,000 unit PO DAILY 12/15/18 06/27/20 History [Vitamin D3] Colchicine 0.6 - 1.2 mg PO DIRECTED PRN 12/15/18 06/27/20 History Gabapentin [Neurontin] 800 mg PO HS 12/15/18 06/27/20 History Sodium Bicarbonate Tab 650 mg PO TID 12/15/18 06/27/20 History Atorvastatin Calcium [Lipitor] 40 mg PO HS 06/27/20 06/27/20 History Hydroxychloroquine Sulfate 200 mg PO BID 06/27/20 06/27/20 History [Plaquenil] Meclizine HCl 25 mg PO TID PRN 06/27/20 06/27/20 History Ondansetron [Zofran] 4 mg PO DAILY PRN 06/27/20 06/27/20 History Allergies Allergy/AdvReac Type Severity Reaction Status Date / Time ibuprofen [From Motrin] AdvReac HEADACHES Verified 06/27/20 14:38 Physical Exam Vitals: Vital Signs Temp Pulse Resp BP Pulse Ox 06/28/20 20:42 97.7 F 70 18 173/83 95 06/28/20 12:13 97.9 F 65 17 169/66 94 L 06/28/20 05:50 97.6 F 68 18 178/65 96 Intake and Output 06/28/20 06/28/20 06/28/20 06:59 14:59 22:59 Intake Total 0 Balance 0 Intake: Oral 0 Other: Voiding Method Toilet Toilet Toilet # Voids 1 3 1 - Constitutional General appearance: cooperative, no acute distress - EENT Eyes: EOMI, PERRLA, dentition normal ENT: hard of hearing, NA/AT - Neck Neck: normal ROM - Respiratory Respiratory: bilateral: CTA - Cardiovascular Rhythm: regular Heart sounds: normal: S1, S2 leg Peripheral Edema: bilateral: Trace - Gastrointestinal General gastrointestinal: organomegaly, soft - Integumentary Integumentary: pale - Neurologic non-focal - Musculoskeletal Musculoskeletal: generalized weakness - Psychiatric Psychiatric: A&O x's 3, appropriate affect, intact judgment & insight Results CBC & Chem 7: 06/28/20 08:26 06/28/20 08:26 Labs: Abnormal Lab Results - Last 24 Hours (Table) 06/27/20 06/27/20 06/28/20 Range/Units 13:00 15:10 07:03 RBC (4.30-5.90) m/uL Plt Count (150-450) k/uL Lymphocytes # (1.0-4.8) k/uL Sodium (137-145) mmol/L Carbon Dioxide (22-30) mmol/L BUN (9-20) mg/dL Creatinine (0.66-1.25) mg/dL Glucose (74-99) mg/dL POC Glucose (mg/dL) 181 H (75-99) mg/dL Albumin (PEP) 3.60 L (3.80-4.90) g/dL Urine Protein (Negative) Urine Glucose (UA) (Negative) Urine Blood (Negative) T-Suppressor Cells 141 L (190-832) cell/ul Total T Cells 530 L (704-2138) cell/ul % CD3 Cells 45 L (55-86) % % CD4 [place] 33 L (35-66) % Absolute CD4 [place] 388 L (443-1471) cell/ul % CD16/CD56 Cells 31 H (3-24) % Free [place] LC, Quant 9.94 H (0.33-1.94) mg/dL Free [place] LC, Quant 5.36 H (0.57-2.63) mg/dL 06/28/20 06/28/20 06/28/20 Range/Units 08:26 08:26 11:27 RBC 4.22 L (4.30-5.90) m/uL Plt Count 15 L* D (150-450) k/uL Lymphocytes # 0.6 L (1.0-4.8) k/uL Sodium 133 L (137-145) mmol/L Carbon Dioxide 19 L (22-30) mmol/L BUN 56 H (9-20) mg/dL Creatinine 1.88 H (0.66-1.25) mg/dL Glucose 265 H (74-99) mg/dL POC Glucose (mg/dL) (75-99) mg/dL Albumin (PEP) (3.80-4.90) g/dL Urine Protein 2+ H (Negative) Urine Glucose (UA) 3+ H (Negative) Urine Blood Small H (Negative) T-Suppressor Cells (190-832) cell/ul Total T Cells (704-2138) cell/ul % CD3 Cells (55-86) % % CD4 [place] (35-66) % Absolute CD4 [place] (443-1471) cell/ul % CD16/CD56 Cells (3-24) % Free [place] LC, Quant (0.33-1.94) mg/dL Free [place] LC, Quant (0.57-2.63) mg/dL 06/28/20 06/28/20 06/28/20 Range/Units 12:39 16:52 19:25 RBC (4.30-5.90) m/uL Plt Count (150-450) k/uL Lymphocytes # (1.0-4.8) k/uL Sodium (137-145) mmol/L Carbon Dioxide (22-30) mmol/L BUN (9-20) mg/dL Creatinine (0.66-1.25) mg/dL Glucose (74-99) mg/dL POC Glucose (mg/dL) 244 H 338 H 377 H (75-99) mg/dL Albumin (PEP) (3.80-4.90) g/dL Urine Protein (Negative) Urine Glucose (UA) (Negative) Urine Blood (Negative) T-Suppressor Cells (190-832) cell/ul Total T Cells (704-2138) cell/ul % CD3 Cells (55-86) % % CD4 [place] (35-66) % Absolute CD4 [place] (443-1471) cell/ul % CD16/CD56 Cells (3-24) % Free [place] LC, Quant (0.33-1.94) mg/dL Free [place] LC, Quant (0.57-2.63) mg/dL Chest x-ray: report reviewed Thrombosis Risk Factor Assmnt - DVT/VTE Prophylaxis DVT/VTE Prophylaxis: Contraindicated - See note - Choose All That Apply Any of the Below Risk Factors Present?: Yes Each Factor Represents 1 point: Obesity (BMI >25) Other Risk Factors: Yes Each Risk Factor Represents 2 Points: Age 61-74 years, Malignancy Other congenital or acquired thrombophilia - If yes, enter type in comment: No Thrombosis Risk Factor Assessment Total Risk Factor Score: 5 Thrombosis Risk Factor Assessment Level: High Risk Assessment and Plan (1) Thrombocytopenia Current Visit: Yes Status: Acute Code(s): D69.6 - THROMBOCYTOPENIA, UNSPECIFIED SNOMED Code(s): 347434979 (2) Monoclonal gammopathy Current Visit: Yes Status: Acute Code(s): D47.2 - MONOCLONAL GAMMOPATHY SNOMED Code(s): 044999975 (3) Chronic kidney disease Current Visit: Yes Status: Acute Code(s): N18.9 - CHRONIC KIDNEY DISEASE, UNSPECIFIED SNOMED Code(s): 945125045 (4) Connective tissue disorder Current Visit: Yes Status: Acute Code(s): M35.9 - SYSTEMIC INVOLVEMENT OF CONNECTIVE TISSUE, UNSPECIFIED SNOMED Code(s): 619214397 Plan: Assessment: 1. New Diagnosis Idiopathic Thrombycytopenia Purpura 2. Monoclonal Gammopathy 3. Connective Tissue Disorder 4. Chronic Kidney disease stage 3 per JAN 5. Diabetes Mellitus 6. CAD, HTN, HLD Plan: 1. Decrease Gammaglobin doses by half over two additional days 2. Medical Management continue to follow 3. Transfuse platelets when less than 10K 4. Continue Solu-medrol PPI 5. No ASA, Anticoagulation, NSAID, FISH oils at this time 6. COntinue to Hold Plaquenil 7. Ultrasound of kidney and bladder reviewed and no evidence of physical or structural obstruction or hydronephrosis 8. Daily CBC, CMP Physician Attest: I have completed the full history and physical and agree with above dictation, dictated as a scribe
[2020-06-29] MEDS: methylPREDNISolone SOD SUCCI 125 MG/2 ML VIAL IV SCH ×2 (05:42→12:46)
[2020-06-29] MEDS: LEVOTHYROXINE 100 MCG TAB PO SCH (05:42)
[2020-06-29 06:56] LABS: Glucose,Whole Blood 211 mg/dL (75-99)
[2020-06-29 08:04] LABS: Basophils % (A) 0 %; Eosinophils % (A) 0 %; HCT 40.7 % (39.0-53.0); Lymphocytes # (A) 0.5 k/uL (1.0-4.8); Lymphocytes % (A) 7 %; MCH 30.7 pg (25.0-35.0); Mean Platelet Volume 10.1; Monocytes # (A) 0.2 k/uL (0-1.0); Monocytes % (A) 3 %; Neutrophils # (A) 7.1 k/uL (1.3-7.7); Neutrophils % (A) 90 %; RBC 4.24 m/uL (4.30-5.90); RDW 15.1 % (11.5-15.5)
[2020-06-29 08:06] LABS: Platelet Count 37 k/uL (150-450)
[2020-06-29] MEDS: INSULIN DETEMIR (LEVEMIR) 100 UNIT/ML SYR SQ SCH (08:07)
[2020-06-29] MEDS: CHOLECALCIFEROL 1,000 UNIT TAB PO SCH (08:07)
[2020-06-29] MEDS: SODIUM BICARBONATE TAB 650 MG TAB PO SCH (08:07)
[2020-06-29] MEDS: INSULIN ASPART (NovoLOG) 100 UNIT/ML VIAL SQ SCH ×2 (08:07→12:39)
[2020-06-29] MEDS: METOPROLOL TARTRATE 25 MG TAB PO SCH (08:07)
[2020-06-29] MEDS: GABAPENTIN 400 MG CAP PO SCH ×2 (08:07→12:39)
[2020-06-29] MEDS: allopurinoL 100 MG TAB PO SCH (08:07)
[2020-06-29] MEDS: PANTOPRAZOLE 40 MG TABLET PO SCH (08:07)
[2020-06-29] MEDS: hydrALAZINE HCL 50 MG TAB PO SCH (08:07)
[2020-06-29 08:11] LABS: Albumin 3.7 g/dL (3.5-5.0); Calcium 8.5 mg/dL (8.4-10.2); Magnesium 1.9 mg/dL (1.6-2.3); Phosphorus 4.6 mg/dL (2.5-4.5); Potassium 5.3 mmol/L (3.5-5.1); Total Bilirubin 0.8 mg/dL (0.2-1.3); Total Protein 7.8 g/dL (6.3-8.2)
--- NOTE | 2020-06-29 11:00 | P.PN ---
Subjective Patient is seen in follow-up for acute kidney injury on chronic kidney disease. Patient has chronic kidney disease stage III with baseline creatinine in the range of 1.8-1.9. Renal function fairly stable. Good urine output. No vomiting or diarrhea. Vital signs are stable. General: The patient appeared well nourished and normally developed. HEENT: Head exam is unremarkable. Neck is without jugular venous distension. LUNGS: Lungs are clear to auscultation and percussion. Breath sounds decreased. HEART: Rate and Rhythm are regular. ABDOMEN: Soft, nontender. EXTREMITITES: No clubbing, cyanosis, or edema. Objective - Vital Signs Vital signs: Vital Signs Temp 97.3 F L 06/29/20 05:08 Pulse 68 06/29/20 05:08 Resp 18 06/29/20 05:08 BP 151/68 06/29/20 05:08 Pulse Ox 95 06/29/20 05:08 Intake & Output 06/28/20 06/29/20 06/29/20 18:59 06:59 18:59 Other: Voiding Method Toilet Toilet Toilet # Voids 3 3 - Labs CBC & Chem 7: 06/29/20 07:09 06/29/20 07:09 Labs: Abnormal Lab Results - Last 24 Hours (Table) 06/27/20 06/27/20 06/27/20 Range/Units 13:00 13:00 15:10 RBC (4.30-5.90) m/uL Plt Count (150-450) k/uL Lymphocytes # (1.0-4.8) k/uL Sodium (137-145) mmol/L Potassium (3.5-5.1) mmol/L Carbon Dioxide (22-30) mmol/L BUN (9-20) mg/dL Creatinine (0.66-1.25) mg/dL Glucose (74-99) mg/dL POC Glucose (mg/dL) (75-99) mg/dL Phosphorus (2.5-4.5) mg/dL AST (17-59) U/L Albumin (PEP) 3.60 L (3.80-4.90) g/dL Methylmalonic Acid 0.46 H (<0.40) umol/L Urine Protein (Negative) Urine Glucose (UA) (Negative) Urine Blood (Negative) T-Suppressor Cells 141 L (190-832) cell/ul Total T Cells 530 L (704-2138) cell/ul % CD3 Cells 45 L (55-86) % % CD4 [place] 33 L (35-66) % Absolute CD4 [place] 388 L (443-1471) cell/ul % CD16/CD56 Cells 31 H (3-24) % Free [place] LC, Quant 9.94 H (0.33-1.94) mg/dL Free [place] LC, Quant 5.36 H (0.57-2.63) mg/dL 06/28/20 06/28/20 06/28/20 Range/Units 11:27 12:39 16:52 RBC (4.30-5.90) m/uL Plt Count (150-450) k/uL Lymphocytes # (1.0-4.8) k/uL Sodium (137-145) mmol/L Potassium (3.5-5.1) mmol/L Carbon Dioxide (22-30) mmol/L BUN (9-20) mg/dL Creatinine (0.66-1.25) mg/dL Glucose (74-99) mg/dL POC Glucose (mg/dL) 244 H 338 H (75-99) mg/dL Phosphorus (2.5-4.5) mg/dL AST (17-59) U/L Albumin (PEP) (3.80-4.90) g/dL Methylmalonic Acid (<0.40) umol/L Urine Protein 2+ H (Negative) Urine Glucose (UA) 3+ H (Negative) Urine Blood Small H (Negative) T-Suppressor Cells (190-832) cell/ul Total T Cells (704-2138) cell/ul % CD3 Cells (55-86) % % CD4 [place] (35-66) % Absolute CD4 [place] (443-1471) cell/ul % CD16/CD56 Cells (3-24) % Free [place] LC, Quant (0.33-1.94) mg/dL Free [place] LC, Quant (0.57-2.63) mg/dL 06/28/20 06/29/20 06/29/20 Range/Units 19:25 06:53 07:09 RBC (4.30-5.90) m/uL Plt Count (150-450) k/uL Lymphocytes # (1.0-4.8) k/uL Sodium 133 L (137-145) mmol/L Potassium 5.3 H (3.5-5.1) mmol/L Carbon Dioxide 21 L (22-30) mmol/L BUN 71 H (9-20) mg/dL Creatinine 2.11 H (0.66-1.25) mg/dL Glucose 223 H (74-99) mg/dL POC Glucose (mg/dL) 377 H 211 H (75-99) mg/dL Phosphorus 4.6 H (2.5-4.5) mg/dL AST 93 H (17-59) U/L Albumin (PEP) (3.80-4.90) g/dL Methylmalonic Acid (<0.40) umol/L Urine Protein (Negative) Urine Glucose (UA) (Negative) Urine Blood (Negative) T-Suppressor Cells (190-832) cell/ul Total T Cells (704-2138) cell/ul % CD3 Cells (55-86) % % CD4 [place] (35-66) % Absolute CD4 [place] (443-1471) cell/ul % CD16/CD56 Cells (3-24) % Free [place] LC, Quant (0.33-1.94) mg/dL Free [place] LC, Quant (0.57-2.63) mg/dL 06/29/20 Range/Units 07:09 RBC 4.24 L (4.30-5.90) m/uL Plt Count 37 L D (150-450) k/uL Lymphocytes # 0.5 L (1.0-4.8) k/uL Sodium (137-145) mmol/L Potassium (3.5-5.1) mmol/L Carbon Dioxide (22-30) mmol/L BUN (9-20) mg/dL Creatinine (0.66-1.25) mg/dL Glucose (74-99) mg/dL POC Glucose (mg/dL) (75-99) mg/dL Phosphorus (2.5-4.5) mg/dL AST (17-59) U/L Albumin (PEP) (3.80-4.90) g/dL Methylmalonic Acid (<0.40) umol/L Urine Protein (Negative) Urine Glucose (UA) (Negative) Urine Blood (Negative) T-Suppressor Cells (190-832) cell/ul Total T Cells (704-2138) cell/ul % CD3 Cells (55-86) % % CD4 [place] (35-66) % Absolute CD4 [place] (443-1471) cell/ul % CD16/CD56 Cells (3-24) % Free [place] LC, Quant (0.33-1.94) mg/dL Free [place] LC, Quant (0.57-2.63) mg/dL Assessment and Plan Plan: Assessment: 1. Mild acute kidney injury mostly prerenal. Improved. Creatinine stable at 2.1 today. No hydronephrosis noted on kidney ultrasound. 2. Chronic kidney disease stage III Baseline creatinine in the range of 1.8 1.9. Etiology is mostly diabetic kidney disease. However he is also noted to have RBCs in the urine and lupus nephritis is also in the differential - repeat UA showed only 1 RBC. Therefore doubt lupus nephritis at this time. 3. Newly diagnosed ITP maintain on IVIG and IV steroids per hematology. 4. Monoclonal gammopathy. 5. Metabolic acidosis secondary to chronic kidney disease. Maintained on oral sodium bicarbonate. Better. 6. Insulin-dependent diabetes mellitus. 7. Hypertension with chronic kidney disease. Partially due to steroids. 8. History of lupus maintained on Plaquenil outpatient. 9. Mild hyperkalemia secondary to hyperglycemia. Plan: Follow-up serologies. Increase hydralazine to 75 mg 3 times daily. Continue to monitor renal function and urine output. Tight blood sugar control. Anticipate discharge soon. Follow up outpatient in 1-2 weeks.
--- NOTE | 2020-06-29 11:09 | P.PN ---
Subjective Progress Note Date: 06/29/20 No new complaints today, patient feels well and is hoping to go home today. PLTs have improved to 36. Objective - Vital Signs Vital signs: Vital Signs Temp 97.3 F L 06/29/20 05:08 Pulse 68 06/29/20 05:08 Resp 18 06/29/20 05:08 BP 151/68 06/29/20 05:08 Pulse Ox 95 06/29/20 05:08 Intake & Output 06/28/20 06/29/20 06/29/20 18:59 06:59 18:59 Other: Voiding Method Toilet Toilet Toilet # Voids 3 3 - Exam Gen: awake, alert HEENT: normocephalic, atraumatic, good hearing acuity, moist mucous membranes Resp: CTAB, good air exchange, no accessory muscle use, no wheezes, crackles, rhonchi CVS: good distal perfusion x 4, RRR, blowing systolic murmur, clicks, gallops GI: soft, NTTP, ND : no SPT, no CVAT, benítez catheter not present MSK: no pitting edema, no clubbing, petechial rash of lower extremities Neuro: non-focal, no sensory deficits, appropriate tone Psych: cooperative, euthymic mood - Labs CBC & Chem 7: 06/29/20 07:09 06/29/20 07:09 Labs: Abnormal Lab Results - Last 24 Hours (Table) 06/27/20 06/27/20 06/27/20 Range/Units 13:00 13:00 15:10 RBC (4.30-5.90) m/uL Plt Count (150-450) k/uL Lymphocytes # (1.0-4.8) k/uL Sodium (137-145) mmol/L Potassium (3.5-5.1) mmol/L Carbon Dioxide (22-30) mmol/L BUN (9-20) mg/dL Creatinine (0.66-1.25) mg/dL Glucose (74-99) mg/dL POC Glucose (mg/dL) (75-99) mg/dL Phosphorus (2.5-4.5) mg/dL AST (17-59) U/L Albumin (PEP) 3.60 L (3.80-4.90) g/dL Methylmalonic Acid 0.46 H (<0.40) umol/L Urine Protein (Negative) Urine Glucose (UA) (Negative) Urine Blood (Negative) T-Suppressor Cells 141 L (190-832) cell/ul Total T Cells 530 L (704-2138) cell/ul % CD3 Cells 45 L (55-86) % % CD4 [place] 33 L (35-66) % Absolute CD4 [place] 388 L (443-1471) cell/ul % CD16/CD56 Cells 31 H (3-24) % Free [place] LC, Quant 9.94 H (0.33-1.94) mg/dL Free Lambda LC, Quant 5.36 H (0.57-2.63) mg/dL 06/28/20 06/28/20 06/28/20 Range/Units 11:27 12:39 16:52 RBC (4.30-5.90) m/uL Plt Count (150-450) k/uL Lymphocytes # (1.0-4.8) k/uL Sodium (137-145) mmol/L Potassium (3.5-5.1) mmol/L Carbon Dioxide (22-30) mmol/L BUN (9-20) mg/dL Creatinine (0.66-1.25) mg/dL Glucose (74-99) mg/dL POC Glucose (mg/dL) 244 H 338 H (75-99) mg/dL Phosphorus (2.5-4.5) mg/dL AST (17-59) U/L Albumin (PEP) (3.80-4.90) g/dL Methylmalonic Acid (<0.40) umol/L Urine Protein 2+ H (Negative) Urine Glucose (UA) 3+ H (Negative) Urine Blood Small H (Negative) T-Suppressor Cells (190-832) cell/ul Total T Cells (704-2138) cell/ul % CD3 Cells (55-86) % % CD4 [place] (35-66) % Absolute CD4 [place] (443-1471) cell/ul % CD16/CD56 Cells (3-24) % Free [place] LC, Quant (0.33-1.94) mg/dL Free Lambda LC, Quant (0.57-2.63) mg/dL 06/28/20 06/29/20 06/29/20 Range/Units 19:25 06:53 07:09 RBC (4.30-5.90) m/uL Plt Count (150-450) k/uL Lymphocytes # (1.0-4.8) k/uL Sodium 133 L (137-145) mmol/L Potassium 5.3 H (3.5-5.1) mmol/L Carbon Dioxide 21 L (22-30) mmol/L BUN 71 H (9-20) mg/dL Creatinine 2.11 H (0.66-1.25) mg/dL Glucose 223 H (74-99) mg/dL POC Glucose (mg/dL) 377 H 211 H (75-99) mg/dL Phosphorus 4.6 H (2.5-4.5) mg/dL AST 93 H (17-59) U/L Albumin (PEP) (3.80-4.90) g/dL Methylmalonic Acid (<0.40) umol/L Urine Protein (Negative) Urine Glucose (UA) (Negative) Urine Blood (Negative) T-Suppressor Cells (190-832) cell/ul Total T Cells (704-2138) cell/ul % CD3 Cells (55-86) % % CD4 [place] (35-66) % Absolute CD4 [place] (443-1471) cell/ul % CD16/CD56 Cells (3-24) % Free [place] LC, Quant (0.33-1.94) mg/dL Free Lambda LC, Quant (0.57-2.63) mg/dL 06/29/20 Range/Units 07:09 RBC 4.24 L (4.30-5.90) m/uL Plt Count 37 L D (150-450) k/uL Lymphocytes # 0.5 L (1.0-4.8) k/uL Sodium (137-145) mmol/L Potassium (3.5-5.1) mmol/L Carbon Dioxide (22-30) mmol/L BUN (9-20) mg/dL Creatinine (0.66-1.25) mg/dL Glucose (74-99) mg/dL POC Glucose (mg/dL) (75-99) mg/dL Phosphorus (2.5-4.5) mg/dL AST (17-59) U/L Albumin (PEP) (3.80-4.90) g/dL Methylmalonic Acid (<0.40) umol/L Urine Protein (Negative) Urine Glucose (UA) (Negative) Urine Blood (Negative) T-Suppressor Cells (190-832) cell/ul Total T Cells (704-2138) cell/ul % CD3 Cells (55-86) % % CD4 [place] (35-66) % Absolute CD4 [place] (443-1471) cell/ul % CD16/CD56 Cells (3-24) % Free [place] LC, Quant (0.33-1.94) mg/dL Free Lambda LC, Quant (0.57-2.63) mg/dL Assessment and Plan Assessment: 1. Severe thrombocytopenia 2. Hypertension, essential 3. Hyperlipidemia 4. CAD status post CABG 5. Hypothyroidism 6. CKD stage III 7. Connective tissue disease 74-year-old man with past medical history of HTN/HLD/CAD, hypothyroidism, CTB stage III, connective tissue disease presented with thrombocytopenia; medicine consulted by oncology service for management of comorbid issues. Plan: medicine consulting med rec completed avoid NSAIDs, heparin products insulin sliding scale will convert home insulin NPH/Humalog 40/30 qAM/qHS regimen to 35U lantus daily remainder of care per primary team We appreciate you involving us in the care of this patient, please do not hesitate to contact us if there are any further questions or clarifications. Okay for discharge from medicine perspective once cleared by nephrology and he matology.
[2020-06-29 11:42] LABS: Glucose,Whole Blood 391 mg/dL (75-99)
[2020-06-29 11:57] VITALS: BP 187/73; PULSE 54; TEMP 97.7
[2020-06-29] MEDS ORDERED: CYANOCOBALAMIN 500 MCG TAB PO SCH (12:15)
--- NOTE | 2020-06-29 15:51 | P.DS ---
Providers Date of admission: 06/27/20 12:29 Expected date of discharge: 06/29/20 Attending physician: Rajni Kwan Consults: 06/27/20 12:12 Consult Physician Routine Consulting Provider: Leah Gomez Consult Reason/Comments: Medical Management Do you want consulting provider notified?: Yes 06/27/20 15:32 Consult Physician Routine Consulting Provider: Joanne Vu Consult Reason/Comments: Chronic Kidney Disease, increasing Creat Do you want consulting provider notified?: Yes Primary care physician: Emerson Wilder - Discharge Diagnosis(es) (1) Thrombocytopenia IVIG total of 70grams over 2 days (did not give last 30grams secondary to renal function and improvement of PLatelet count PLatelets 37K on discharge No s/s bleeding Prednisone and Omeprazole on discharge - Patient instructed on obtaining OTC omeprazole and take while on Steroids S/s bleeding patient is to come to emergency Weekly visits with CBC and [employer] to wean steroids Clearance by Nephrology and MM Discussed with MM Dr. Ackerman and he will complete med rec for Diabetic medication adjustments given the anticipation of increased blood sugars and increased blood pressure while on prednisone. As well as, taking into account acute on chronic Kidney disease Current Visit: Yes Status: Acute (2) Monoclonal gammopathy Current Visit: Yes Status: Acute (3) Chronic kidney disease Current Visit: Yes Status: Acute (4) Connective tissue disorder Current Visit: Yes Status: Acute Assessment: - Constitutional General appearance: cooperative, no acute distress - EENT Eyes: EOMI, PERRLA, dentition normal ENT: hard of hearing, NA/AT - Neck Neck: normal ROM - Respiratory Respiratory: bilateral: CTA - Cardiovascular Rhythm: regular Heart sounds: normal: S1, S2 leg Peripheral Edema: bilateral: Trace - Gastrointestinal General gastrointestinal: organomegaly, soft - Integumentary Integumentary: pale, Bilateral lower extremitity petechaie improving - Neurologic non-focal - Musculoskeletal Musculoskeletal: generalized weakness - Psychiatric Psychiatric: A&O x's 3, appropriate affect, intact judgment & insight Health Concerns: Monitor for bleeding Monitor for increased blood sugars, blood pressures, and renal function, Patient Condition at Discharge: Fair Plan - Discharge Summary Discharge Rx Participant: Yes New Discharge Prescriptions: New hydrALAZINE HCL [Apresoline] 75 mg PO TID #270 tab predniSONE [Deltasone] 60 mg PO DAILY 15 Days tab Insulin Detemir (Levemir) [Levemir] 35 unit SQ DAILY@0700 #1 syr INSULIN ASPART (NovoLOG) [NovoLOG (formulary)] See Protocol SQ ACHS #1 vial Pantoprazole [Protonix] 40 mg PO AC-BID #14 tablet. Cyanocobalamin [Vitamin B-12] 1,000 mcg PO DAILY #30 tab Omeprazole 40 mg PO DAILY 30 Days capsule. Continue Metoprolol Tartrate [Lopressor] 25 mg PO Q12H Levothyroxine Sodium [Synthroid] 100 mcg PO DAILY Gabapentin [Neurontin] 400 mg PO AC-TID Allopurinol [Zyloprim] 300 mg PO DAILY Sodium Bicarbonate Tab 650 mg PO TID Colchicine 0.6 - 1.2 mg PO DIRECTED PRN PRN Reason: gout attack Gabapentin [Neurontin] 800 mg PO HS Cholecalciferol (Vitamin D3) [Vitamin D3] 2,000 unit PO DAILY Ondansetron [Zofran] 4 mg PO DAILY PRN PRN Reason: Nausea Hydroxychloroquine Sulfate [Plaquenil] 200 mg PO BID Atorvastatin Calcium [Lipitor] 40 mg PO HS Discontinued hydrALAZINE HCL [Apresoline] 25 mg PO TID Insulin NPH Hum/Reg Insulin Hm [NovoLIN 70-30 100 UNIT/ML VIAL] 40 units SQ QAM Insulin NPH Hum/Reg Insulin Hm [NovoLIN 70-30 100 UNIT/ML VIAL] 30 units SQ HS Meclizine HCl 25 mg PO TID PRN PRN Reason: DIZZINESS Discharge Medication List Allopurinol [Zyloprim] 300 mg PO DAILY 08/28/16 [History] Gabapentin [Neurontin] 400 mg PO AC-TID 08/28/16 [History] Levothyroxine Sodium [Synthroid] 100 mcg PO DAILY 08/28/16 [History] Metoprolol Tartrate [Lopressor] 25 mg PO Q12H 08/28/16 [History] Cholecalciferol (Vitamin D3) [Vitamin D3] 2,000 unit PO DAILY 12/15/18 [History] Colchicine 0.6 - 1.2 mg PO DIRECTED PRN 12/15/18 [History] Gabapentin [Neurontin] 800 mg PO HS 12/15/18 [History] Sodium Bicarbonate Tab 650 mg PO TID 12/15/18 [History] Atorvastatin Calcium [Lipitor] 40 mg PO HS 06/27/20 [History] Hydroxychloroquine Sulfate [Plaquenil] 200 mg PO BID 06/27/20 [History] Ondansetron [Zofran] 4 mg PO DAILY PRN 06/27/20 [History] Cyanocobalamin [Vitamin B-12] 1,000 mcg PO DAILY #30 tab 06/29/20 [Rx] INSULIN ASPART (NovoLOG) [NovoLOG (formulary)] See Protocol SQ ACHS #1 vial 06/29/20 [Rx] Insulin Detemir (Levemir) [Levemir] 35 unit SQ DAILY@0700 #1 syr 06/29/20 [Rx] Omeprazole 40 mg PO DAILY 30 Days capsule. 06/29/20 [Rx] Pantoprazole [Protonix] 40 mg PO AC-BID #14 tablet. 06/29/20 [Rx] hydrALAZINE HCL [Apresoline] 75 mg PO TID #270 tab 06/29/20 [Rx] predniSONE [Deltasone] 60 mg PO DAILY 15 Days tab 06/29/20 [Rx] Follow up Appointment(s)/Referral(s): Rajni Kwan MD [STAFF PHYSICIAN] - 08/01/20 3:00 pm Patient Instructions/Handouts: Prednisone (By mouth), Hydralazine (By mouth), Pantoprazole (By mouth), Insulin Aspart Protamine/Insulin Aspart (By injection), Vitamin B-12 (By mouth), Insulin Detemir (By injection), Thrombocytopenia (DC) Activity/Diet/Wound Care/Special Instructions: [facility] Med list was faxed to [facility] Discharge Disposition: HOME SELF-CARE
[2020-06-29] MEDS ORDERED: hydrALAZINE HCL 25 MG TAB PO SCH (16:00)
[2020-06-29] MEDS ORDERED: methylPREDNISolone SOD SUCCI 125 MG/2 ML VIAL IV SCH (16:00)
[2020-06-29 17:33] LABS: Hepatitis A Antibody IgM Non-Reactive (Non-Reactive); Hepatitis B Core IgM Non-Reactive (Non-Reactive); Hepatitis B Surface Antigen Non-Reactive (Non-Reactive); Hepatitis C IgG Antibody Non-Reactive (Non-Reactive)
[2020-06-29] MEDS ORDERED: IMMUNE GLOBULIN (GAMMAGARD) 30 GM in EMPTY BAG 1 BAG IV ONE (20:00)
[2020-06-29 20:31] LABS: DNA Double-Stranded NEGATIVE (NEGATIVE)
[2020-06-30] MEDS ORDERED: INSULIN DETEMIR (LEVEMIR) 100 UNIT/ML SYR SQ SCH (07:00)
[2020-06-30 11:55] LABS: ANA Pattern Speckled; ANA Pattern 2 Nucleolar
[2020-06-30 14:42] LABS: C-ANCA <1:20 Titer (<1:20)
== END 2020-06-29 17:37 | disposition home or self-care (01) | DRG 813 ==
LOC: 5NMEDONC 12:29
PROVIDERS: ADMIT Internal Medicine Hematology & Oncology; ATTEND Internal Medicine Hematology & Oncology
PROC: 30233R1 Transfusion of Nonautologous Platelets into Peripheral Vein, Percutaneous Approach (ICD-10-PCS; principal; 2020-06-27)
DX: D69.3 Immune thrombocytopenic purpura (principal); E87.2 Acidosis; N17.9 Acute kidney failure, unspecified; D47.2 Monoclonal gammopathy; E03.9 Hypothyroidism, unspecified; E11.22 Type 2 diabetes mellitus with diabetic chronic kidney disease; E11.42 Type 2 diabetes mellitus with diabetic polyneuropathy; Z79.4 Long term (current) use of insulin; E11.65 Type 2 diabetes mellitus with hyperglycemia; E78.5 Hyperlipidemia, unspecified; E87.5 Hyperkalemia; F43.10 Post-traumatic stress disorder, unspecified; H91.90 Unspecified hearing loss, unspecified ear; I12.9 Hypertensive chronic kidney disease with stage 1 through stage 4 chronic kidney disease, or unspecified chronic kidney disease; I25.10 Atherosclerotic heart disease of native coronary artery without angina pectoris; I25.2 Old myocardial infarction; N18.3 Chronic kidney disease, stage 3 (moderate); T38.0X5A Adverse effect of glucocorticoids and synthetic analogues, initial encounter; Z79.82 Long term (current) use of aspirin; Z79.890 Hormone replacement therapy; Z79.899 Other long term (current) drug therapy; Z80.8 Family history of malignant neoplasm of other organs or systems; Z82.49 Family history of ischemic heart disease and other diseases of the circulatory system; Z83.3 Family history of diabetes mellitus; Z84.1 Family history of disorders of kidney and ureter; Z86.006 Personal history of melanoma in-situ; Z95.1 Presence of aortocoronary bypass graft; M32.9 Systemic lupus erythematosus, unspecified; H26.9 Unspecified cataract; M10.9 Gout, unspecified; Z86.010 Personal history of colon polyps; M15.9 Polyosteoarthritis, unspecified; G43.909 Migraine, unspecified, not intractable, without status migrainosus
CPT/HCPCS: 71046; 76770; 80053; 80074; 81001; 82570; 82607; 82668; 82728; 82746; 82784; 83540; 83550; 83615; 83735; 83883; 83921; 84100; 84156; 84165; 84443; 84550; 85025; 85610; 85730; 86038; 86039; 86160; 86162; 86225; 86255; 86355; 86357; 86359; 86360; 86850; 86900; 86901

== ENCOUNTER → 2020-07-05 | Outpatient (CLI) | payer MEDICARE ==
--- NOTE | 2020-07-05 17:19 | XR ---
EXAMINATION TYPE: XR chest 2V DATE OF EXAM: 07/05/2020 COMPARISON: 06/27/2020 HISTORY: Short of breath TECHNIQUE: FINDINGS: There is some pulmonary vascular congestion. There are sternal wires. Heart appears enlarge d. There is mild pulmonary interstitial edema. IMPRESSION: Interstitial edema increased compared to last exam and consistent with congestive heart f ailure.
--- NOTE | 2020-07-05 18:38 | NM ---
EXAMINATION TYPE: NM pul vent and perfuse DATE OF EXAM: 07/05/2020 COMPARISON: NONE HISTORY: TECHNIQUE: Utilizing inhalation of 37.4 mCi Tc 99m DTPA aerosol and intravenous injection of 5.3 mCi of Tc 99m MAA, ventilation and perfusion images are acquired post injection in multiple projections. FINDINGS: There is matching segmental sized ventilation and perfusion defect involving the anterior segment of the left upper lobe. There is no ventilation/perfusion mismatch.. There is fairly normal perfusion of the right lung. IMPRESSION: Single matched defect in the anterior left upper lobe corresponds to intermediate probability of pulm onary embolism.
== END | disposition home or self-care (01) ==
LOC: RADNMMAIN 16:34
PROVIDERS: ATTEND Registered Nurse Oncology
DX: R06.02 Shortness of breath (principal); R60.9 Edema, unspecified
CPT/HCPCS: 71046; 78582; A9540; A9567

== ENCOUNTER 2020-07-10 15:15 | Inpatient (IN) | payer MEDICARE ==
--- NOTE | 2020-07-10 15:35 | ED ---
Pediatric SOB HPI - General Chief Complaint: Shortness of Breath Stated Complaint: SOB Time Seen by Provider: 07/10/20 15:23 Source: patient, family, RN notes reviewed Mode of arrival: wheelchair Limitations: no limitations - History of Present Illness Initial Comments: Patient is a pleasant 74-year-old male presenting to the emergency department with dyspnea. Patient has history of monoclonal gammopathy and recent diagnosis and hospitalization for ITP. Patient has had progressive dyspnea since discharge less than a week ago. Patient has noticed some leg swelling. Dyspnea is exertional. Patient also has orthopnea. No history of similar symptoms previously. - Related Data Home Medications Medication Instructions Recorded Confirmed Allopurinol [Zyloprim] 300 mg PO DAILY 08/28/16 06/27/20 Gabapentin [Neurontin] 400 mg PO AC-TID 08/28/16 06/27/20 Levothyroxine Sodium [Synthroid] 100 mcg PO DAILY 08/28/16 06/27/20 Metoprolol Tartrate [Lopressor] 25 mg PO Q12H 08/28/16 06/27/20 Cholecalciferol (Vitamin D3) 2,000 unit PO DAILY 12/15/18 06/27/20 [Vitamin D3] Colchicine 0.6 - 1.2 mg PO DIRECTED PRN 12/15/18 06/27/20 Gabapentin [Neurontin] 800 mg PO HS 12/15/18 06/27/20 Sodium Bicarbonate Tab 650 mg PO TID 12/15/18 06/27/20 Atorvastatin Calcium [Lipitor] 40 mg PO HS 06/27/20 06/27/20 Hydroxychloroquine Sulfate 200 mg PO BID 06/27/20 06/27/20 [Plaquenil] Ondansetron [Zofran] 4 mg PO DAILY PRN 06/27/20 06/27/20 Previous Rx's Medication Instructions Recorded Cyanocobalamin [Vitamin B-12] 1,000 mcg PO DAILY #30 tab 06/29/20 INSULIN ASPART (NovoLOG) [NovoLOG See Protocol SQ ACHS #1 vial 06/29/20 (formulary)] Insulin NPH Hum/Reg Insulin Hm 35 unit SQ BID #1 vial 06/29/20 [NovoLIN 70-30 100 UNIT/ML VIAL] Omeprazole 40 mg PO DAILY 30 Days capsule. 06/29/20 Pantoprazole [Protonix] 40 mg PO AC-BID #14 tablet. 06/29/20 hydrALAZINE HCL [Apresoline] 75 mg PO TID #270 tab 06/29/20 predniSONE [Deltasone] 60 mg PO DAILY 15 Days #45 tab 06/29/20 Allergies Allergy/AdvReac Type Severity Reaction Status Date / Time ibuprofen [From Motrin] AdvReac HEADACHES Verified 07/10/20 15:21 Review of Systems ROS Statement: Those systems with pertinent positive or pertinent negative responses have been documented in the HPI. ROS Other: All systems not noted in ROS Statement are negative. Constitutional: Denies: fever Eyes: Denies: eye pain ENT: Denies: ear pain Respiratory: Reports: cough (Minimal cough), dyspnea Cardiovascular: Reports: dyspnea on exertion, orthopnea, edema. 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, mononucal gammopathy, melanoma removed from bilateral arms/scalp, gout bilateral feet/toes/knees, arthritis in multiple joints, limited ROM bilateral shoulders, migraines, IDDM type II, neuropathy bilateral legs/feet and hands, GA per EKG, CKD stage III, balance issues, vertigo, pst L lower leg cellulitis, hypothyroid, beginnings bilateral eye cataracts Last Myocardial Infarction Date:: unk History of Any Multi-Drug Resistant Organisms: None Reported Past Surgical History: Back Surgery, Coronary Bypass/CABG, Heart Catheterization, Orthopedic Surgery Additional Past Surgical History / Comment(s): 2015 CABG 4 vessel, melanoma removed bilateral arms/scalp, bilateral carpal tunnel releases and L ring finger trigger finger release, R knee patella tendon repair, low back surgery, bilateral shoulders RCR, colonoscopies/benign polyps removed. Past Anesthesia/Blood Transfusion Reactions: No Reported Reaction Past Psychological History: No Psychological Hx Reported Smoking Status: Never smoker Past Alcohol Use History: None Reported Past Drug Use History: None Reported - Past Family History Mother Family Medical History: Congestive Heart Failure (CHF), Diabetes Mellitus, Myocardial Infarction (GA) Additional Family Medical History / Comment(s): Mother had GA found on EKG when she was in her 40s. Father Family Medical History: Cancer, Myocardial Infarction (GA), Renal Disease Additional Family Medical History / Comment(s): squamous cell skin cancer, ESRD, at 89yrs from GA Sister(s) Family Medical History: Cancer Additional Family Medical History / Comment(s): squamous and basal cell skin cancer General Exam Limitations: no limitations General appearance: alert, in no apparent distress Head exam: Present: normocephalic Eye exam: Present: normal appearance Neck exam: Present: normal inspection Respiratory exam: Present: normal lung sounds bilaterally Cardiovascular Exam: Present: regular rate, normal rhythm Expanded Peripheral pulses: 2+: Radial (R), Radial (L), Dorsalis Pedis (R), Dorsalis Pedis (L) GI/Abdominal exam: Present: soft. Absent: tenderness Extremities exam: Present: pedal edema. Absent: calf tenderness Neurological exam: Present: alert Psychiatric exam: Present: normal affect, normal mood Skin exam: Present: other (Several areas of ecchymosis on the extremities) Course Vital Signs 07/10/20 07/10/20 07/10/20 15:18 15:21 15:51 Temperature 98.0 F Pulse Rate 72 67 Respiratory 22 22 23 Rate Blood Pressure 182/69 O2 Sat by Pulse 97 Oximetry 07/10/20 07/10/20 16:00 16:58 Temperature Pulse Rate 66 65 Respiratory 15 18 Rate Blood Pressure 168/83 180/87 O2 Sat by Pulse 96 96 Oximetry - Reevaluation(s) Reevaluation #1: 07/10/20 16:06 EKG shows normal sinus rhythm 68. [place] 200. QRS 114. QT 428. QTC 455. Left axis. LVH with repolarization change. Medical Decision Making - Medical Decision Making Patient reevaluated. Patient and family updated on results and plan. Case was discussed in detail with Dr. Samano, covering for Dr. Wilder, who will admit. He requests no consults at this time. - Lab Data Result diagrams: 07/10/20 15:53 07/10/20 15:53 Lab Results 07/10/20 07/10/20 07/10/20 Range/Units 15:53 15:53 15:53 WBC 11.9 H (3.8-10.6) k/uL RBC 3.71 L (4.30-5.90) m/uL Hgb 11.5 L (13.0-17.5) gm/dL Hct 36.3 L (39.0-53.0) % MCV 97.7 (80.0-100.0) fL MCH 30.9 (25.0-35.0) pg MCHC 31.6 (31.0-37.0) g/dL RDW 16.0 H (11.5-15.5) % Plt Count 54 L (150-450) k/uL Neutrophils % 94 % Lymphocytes % 2 % Monocytes % 3 % Eosinophils % 0 % Basophils % 0 % Neutrophils # 11.1 H (1.3-7.7) k/uL Lymphocytes # 0.3 L (1.0-4.8) k/uL Monocytes # 0.3 (0-1.0) k/uL Eosinophils # 0.0 (0-0.7) k/uL Basophils # 0.0 (0-0.2) k/uL Manual Slide Review Performed Anisocytosis (manual) Present Macrocytosis Slight PT 9.6 (9.0-12.0) sec INR 0.9 (<1.2) APTT 22.1 (22.0-30.0) sec Sodium 133 L (137-145) mmol/L Potassium 5.3 H (3.5-5.1) mmol/L Chloride 106 (98-107) mmol/L Carbon Dioxide 20 L (22-30) mmol/L Anion Gap 7 mmol/L BUN 60 H (9-20) mg/dL Creatinine 1.78 H (0.66-1.25) mg/dL Est GFR (CKD-EPI)AfAm 43 (>60 ml/min/1.73 sqM) Est GFR (CKD-EPI)NonAf 37 (>60 ml/min/1.73 sqM) Glucose 263 H (74-99) mg/dL Calcium 8.2 L (8.4-10.2) mg/dL Total Bilirubin 0.8 (0.2-1.3) mg/dL AST 53 (17-59) U/L ALT 123 H (4-49) U/L Alkaline Phosphatase 50 (38-126) U/L Troponin I (0.000-0.034) ng/mL NT-Pro-B Natriuret Pep pg/mL Total Protein 5.8 L (6.3-8.2) g/dL Albumin 3.0 L (3.5-5.0) g/dL 07/10/20 07/10/20 Range/Units 15:53 15:53 WBC (3.8-10.6) k/uL RBC (4.30-5.90) m/uL Hgb (13.0-17.5) gm/dL Hct (39.0-53.0) % MCV (80.0-100.0) fL MCH (25.0-35.0) pg MCHC (31.0-37.0) g/dL RDW (11.5-15.5) % Plt Count (150-450) k/uL Neutrophils % % Lymphocytes % % Monocytes % % Eosinophils % % Basophils % % Neutrophils # (1.3-7.7) k/uL Lymphocytes # (1.0-4.8) k/uL Monocytes # (0-1.0) k/uL Eosinophils # (0-0.7) k/uL Basophils # (0-0.2) k/uL Manual Slide Review Anisocytosis (manual) Macrocytosis PT (9.0-12.0) sec INR (<1.2) APTT (22.0-30.0) sec Sodium (137-145) mmol/L Potassium (3.5-5.1) mmol/L Chloride (98-107) mmol/L Carbon Dioxide (22-30) mmol/L Anion Gap mmol/L BUN (9-20) mg/dL Creatinine (0.66-1.25) mg/dL Est GFR (CKD-EPI)AfAm (>60 ml/min/1.73 sqM) Est GFR (CKD-EPI)NonAf (>60 ml/min/1.73 sqM) Glucose (74-99) mg/dL Calcium (8.4-10.2) mg/dL Total Bilirubin (0.2-1.3) mg/dL AST (17-59) U/L ALT (4-49) U/L Alkaline Phosphatase (38-126) U/L Troponin I 0.051 H* (0.000-0.034) ng/mL NT-Pro-B Natriuret Pep 97611 pg/mL Total Protein (6.3-8.2) g/dL Albumin (3.5-5.0) g/dL - Radiology Data Radiology results: image reviewed (Chest x-ray shows cardiomegaly and mild heart failure) Disposition Clinical Impression: Congestive heart failure Disposition: ADMITTED IP TO THIS HOSP Is patient prescribed a controlled substance at d/c from ED?: No Referrals: Emerson Wilder MD [Primary Care Provider] - 1-2 days Decision Time: 17:13
[2020-07-10 16:03] LABS: Basophils % (A) 0 %; Eosinophils % (A) 0 %; HCT 36.3 % (39.0-53.0); HGB 11.5 gm/dL (13.0-17.5); Lymphocytes # (A) 0.3 k/uL (1.0-4.8); Lymphocytes % (A) 2 %; MCH 30.9 pg (25.0-35.0); MCHC 31.6 g/dL (31.0-37.0); MCV 97.7 fL (80.0-100.0); Macrocytosis Slight; Mean Platelet Volume 9.4; Monocytes # (A) 0.3 k/uL (0-1.0); Monocytes % (A) 3 %; Neutrophils # (A) 11.1 k/uL (1.3-7.7); Neutrophils % (A) 94 %; RBC 3.71 m/uL (4.30-5.90); WBC 11.9 k/uL (3.8-10.6)
[2020-07-10 16:12] LABS: INR 0.9 (<1.2); Partial Thromboplastin Time 22.1 sec (22.0-30.0); Prothrombin Time 9.6 sec (9.0-12.0)
--- NOTE | 2020-07-10 16:13 | XR ---
EXAMINATION TYPE: XR chest 2V DATE OF EXAM: 07/10/2020 COMPARISON: 07/05/2020 HISTORY: Difficulty breathing TECHNIQUE: FINDINGS: Heart is enlarged. There is probably vascular congestion. There are sternal wires. There is very small pleural effusions. There are no hilar masses. Bony thorax is intact. IMPRESSION: Mild heart failure that is improved compared to old exam. Cardiomegaly unchanged.
[2020-07-10 16:15] LABS: Calcium 8.2 mg/dL (8.4-10.2); Potassium 5.3 mmol/L (3.5-5.1); Total Bilirubin 0.8 mg/dL (0.2-1.3); Total Protein 5.8 g/dL (6.3-8.2)
[2020-07-10 16:35] LABS: Anisocytosis (M) Present
[2020-07-10 16:36] LABS: Platelet Count 54 k/uL (150-450)
[2020-07-10] MEDS ORDERED: DOCUSATE 100 MG CAP PO PRN (17:13)
[2020-07-10] MEDS ORDERED: NALOXONE 0.4 MG/ML 1 ML VIAL IV PRN (17:13)
[2020-07-10] MEDS ORDERED: FUROSEMIDE 10 MG/ML 2 ML VIAL IV SCH (17:30)
[2020-07-10] MEDS ORDERED: FUROSEMIDE 10 MG/ML 4 ML VIAL IV SCH (18:00)
[2020-07-10] MEDS: NITROGLYCERIN OINT 1 INCH/GM PACKET TOPICAL SCH ×2 (18:00→20:15)
--- NOTE | 2020-07-10 18:27 | P.HPIM ---
History of Present Illness H&P Date: 07/10/20 Chief Complaint: dyspnea 74 year old man with history of MGUS, CKD III, HTN/HLD/DM/CAD, ITP presented with dyspnea. Pt tells me that since his discharge, he has been gaining abdominal girth, leg swelling, and his exercise tolerance has become more poor. he has also devleoped orthopneic symptoms. He denies chest pain, palps, syncope, presyncope, fevers, chills, nausea, vomiting, constipation, diarrhea, abdominal pain, numbness/weakness. On my assessment, patient was 195/91, HR 76, 96% on 2L NC. CBC shows leukocytosis of 11.9, PLT of 54. Chemistries show Na 133, K 5.3, BUN/Cr 60/1.8. [place] [address], Trop 0.051. CXR appears to have increased v ascular congestion, and alveolar infiltrate diffusely. 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 Review of Systems All Systems reviewed and pertinent positives and negatives noted in HPI, all other symptoms are negative ROS unobtainable: due to endotracheal tube (All Systems reviewed and pertinent positives and negatives noted in HPI, all other symptoms are negative) Past Medical History Past Medical History: Blood Disorder, Coronary Artery Disease (CAD), Cancer, Diabetes Mellitus, Eye Disorder, Hearing Disorder / Deafness, Hyperlipidemia, Hypertension, Myocardial Infarction (OK), Osteoarthritis (OA), Renal Disease, Skin Disorder, Thyroid Disorder Additional Past Medical History / Comment(s): Lupus/recurrent skin lesions, connective tissue disorder, 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, mononucal gammopathy, melanoma removed from bilateral arms/scalp, gout bilateral feet/toes/knees, arthritis in multiple joints, limited ROM bilateral shoulders, migraines, IDDM type II, neuropathy bilateral legs/feet and hands, OK per EKG, CKD stage III, balance issues, vertigo, pst L lower leg cellulitis, hypothyroid, beginnings bilateral eye cataracts Last Myocardial Infarction Date:: unk History of Any Multi-Drug Resistant Organisms: None Reported Past Surgical History: Back Surgery, Coronary Bypass/CABG, Heart Catheterization, Orthopedic Surgery Additional Past Surgical History / Comment(s): 2016 CABG 4 vessel, melanoma removed bilateral arms/scalp, bilateral carpal tunnel releases and L ring finger trigger finger release, R knee patella tendon repair, low back surgery, bilateral shoulders RCR, colonoscopies/benign polyps removed. Past Anesthesia/Blood Transfusion Reactions: No Reported Reaction Past Psychological History: No Psychological Hx Reported Smoking Status: Never smoker Past Alcohol Use History: None Reported Past Drug Use History: None Reported - Past Family History Mother Family Medical History: Congestive Heart Failure (CHF), Diabetes Mellitus, Myocardial Infarction (OK) Additional Family Medical History / Comment(s): Mother had OK found on EKG when she was in her 40s. Father Family Medical History: Cancer, Myocardial Infarction (OK), Renal Disease Additional Family Medical History / Comment(s): squamous cell skin cancer, ESRD, at 89yrs from [place] Sister(s) Family Medical History: Cancer Additional Family Medical History / Comment(s): squamous and basal cell skin cancer Medications and Allergies Home Medications Medication Instructions Recorded Confirmed Type Allopurinol [Zyloprim] 300 mg PO DAILY 08/28/16 07/10/20 History Gabapentin [Neurontin] 400 mg PO AC-TID 08/28/16 07/10/20 History Levothyroxine Sodium [Synthroid] 100 mcg PO DAILY 08/28/16 07/10/20 History Metoprolol Tartrate [Lopressor] 25 mg PO Q12H 08/28/16 07/10/20 History Cholecalciferol (Vitamin D3) 2,000 unit PO DAILY 12/15/18 07/10/20 History [Vitamin D3] Colchicine 0.6 - 1.2 mg PO DIRECTED PRN 12/15/18 07/10/20 History Gabapentin [Neurontin] 800 mg PO HS 12/15/18 07/10/20 History Sodium Bicarbonate Tab 650 mg PO TID 12/15/18 07/10/20 History Atorvastatin Calcium [Lipitor] 40 mg PO HS 06/27/20 07/10/20 History Hydroxychloroquine Sulfate 200 mg PO BID 06/27/20 07/10/20 History [Plaquenil] Ondansetron [Zofran] 4 mg PO DAILY PRN 06/27/20 07/10/20 History Cyanocobalamin [Vitamin B-12] 1,000 mcg PO DAILY #30 tab 06/29/20 07/10/20 Rx Pantoprazole [Protonix] 40 mg PO AC-BID #14 tablet. 06/29/20 07/10/20 Rx predniSONE [Deltasone] 60 mg PO DAILY 15 Days #45 tab 06/29/20 07/10/20 Rx Insulin NPH Hum/Reg Insulin Hm 30 unit SQ HS 07/10/20 07/10/20 History [NovoLIN 70-30 100 UNIT/ML VIAL] Insulin NPH Hum/Reg Insulin Hm 40 unit SQ BID 07/10/20 07/10/20 History [NovoLIN 70-30 100 UNIT/ML VIAL] hydrALAZINE HCL [Apresoline] 50 mg PO TID 07/10/20 07/10/20 History Allergies Allergy/AdvReac Type Severity Reaction Status Date / Time ibuprofen [From Motrin] AdvReac HEADACHES Verified 07/10/20 15:21 Physical Exam Osteopathic Statement: *. No significant issues noted on an osteopathic structural exam other than those noted in the History and Physical/Consult. Vitals: Vital Signs Temp Pulse Resp BP Pulse Ox 07/10/20 18:00 76 18 195/91 96 07/10/20 17:48 67 18 198/94 96 07/10/20 17:29 87 18 183/90 97 07/10/20 16:58 65 18 180/87 96 07/10/20 16:00 66 15 168/83 96 07/10/20 15:51 67 23 07/10/20 15:21 22 07/10/20 15:18 98.0 F 72 22 182/69 97 Intake and Output 07/10/20 07/10/20 07/10/20 06:59 14:59 22:59 Output Total 280 Balance -280 Output: Urine 280 Other: Weight 113.852 kg Gen: awake, alert HEENT: normocephalic, atraumatic, good hearing acuity, moist mucous membranes Resp: Bilateral posterior crackles, good air exchange, no accessory muscle use, no wheezes, crackles, rhonchi CVS: good distal perfusion x 4, RRR, no murmurs, clicks, gallops GI: soft, NTTP, ND : no SPT, no CVAT, benítez catheter not present MSK: pitting edema, no clubbing, bilateral petechial rash Neuro: non-focal, no sensory deficits, appropriate tone Psych: cooperative, euthymic mood Results CBC & Chem 7: 07/10/20 15:53 07/10/20 15:53 Labs: Abnormal Lab Results - Last 24 Hours (Table) 07/10/20 07/10/20 07/10/20 Range/Units 15:53 15:53 15:53 WBC 11.9 H (3.8-10.6) k/uL RBC 3.71 L (4.30-5.90) m/uL Hgb 11.5 L (13.0-17.5) gm/dL Hct 36.3 L (39.0-53.0) % RDW 16.0 H (11.5-15.5) % Plt Count 54 L (150-450) k/uL Neutrophils # 11.1 H (1.3-7.7) k/uL Lymphocytes # 0.3 L (1.0-4.8) k/uL Sodium 133 L (137-145) mmol/L Potassium 5.3 H (3.5-5.1) mmol/L Carbon Dioxide 20 L (22-30) mmol/L BUN 60 H (9-20) mg/dL Creatinine 1.78 H (0.66-1.25) mg/dL Glucose 263 H (74-99) mg/dL Calcium 8.2 L (8.4-10.2) mg/dL ALT 123 H (4-49) U/L Troponin I 0.051 H* (0.000-0.034) ng/mL Total Protein 5.8 L (6.3-8.2) g/dL Albumin 3.0 L (3.5-5.0) g/dL Assessment and Plan Assessment: 1. Acute congestive heart failure 2. CKD stage III 3. Hypertension 4. Hyperlipidemia 5. Diabetes type 2 with neuropathy 6. CAD status post CABG 7. Monoclonal gammopathy of undetermined significance 8. ITP 74 year old man with history of MGUS, CKD III, HTN/HLD/DM/CAD, ITP presented with dyspnea and was found to have wet chest x-ray as well as severely elevated BNP and volume overload on physical exam consistent with congestive heart failure exacerbation and will be admitted for diuresis and echocardiogram. Plan: #HF - I/Os, daily weights - echo tomorrow AM - lasix 40mg IV BID - oxygen PRN #CKDIII #HTN #HLD #DMII #CAD #MGUS #ITP - we will continue all scheduled home medications - add aspart AC PRN sliding scale DVT PPx: contraindicated due to thrombocytopenia is Decision maker Dispo: patient to go back home upon medical optimization
[2020-07-10 18:42] LABS: Glucose,Whole Blood 185 mg/dL (75-99)
[2020-07-10] MEDS: METOPROLOL TARTRATE 25 MG TAB PO SCH (18:42)
[2020-07-10 19:56] LABS: Glucose,Whole Blood 204 mg/dL (75-99)
[2020-07-10] MEDS: GABAPENTIN 400 MG CAP PO SCH (20:14)
[2020-07-10] MEDS: hydrALAZINE HCL 50 MG TAB PO SCH (20:14)
[2020-07-10] MEDS: ATORVASTATIN 40 MG TAB PO SCH (20:14)
[2020-07-10] MEDS: SODIUM BICARBONATE TAB 650 MG TAB PO SCH (20:14)
[2020-07-10] MEDS: HYDROXYCHLOROQUINE SULFATE 200 MG TAB PO SCH (20:15)
[2020-07-10] MEDS ORDERED: INSULN ASP PRT/INSULIN ASPART 100 UNIT/ML 10 ML VIAL SQ SCH (21:00)
[2020-07-11] MEDS: FUROSEMIDE 10 MG/ML 4 ML VIAL IV SCH ×2 (05:31→17:53)
[2020-07-11] MEDS: LEVOTHYROXINE 100 MCG TAB PO SCH (05:32)
[2020-07-11] MEDS: PANTOPRAZOLE 40 MG TABLET PO SCH ×2 (05:37→17:53)
[2020-07-11 06:26] LABS: Glucose,Whole Blood 60 mg/dL (75-99)
[2020-07-11 06:42] LABS: Glucose,Whole Blood 68 mg/dL (75-99)
[2020-07-11 06:48] LABS: Basophils % (A) 0 %; Eosinophils % (A) 0 %; HCT 38.7 % (39.0-53.0); HGB 11.9 gm/dL (13.0-17.5); Hypochromasia Slight; Lymphocytes # (A) 1.3 k/uL (1.0-4.8); Lymphocytes % (A) 10 %; MCH 30.5 pg (25.0-35.0); MCHC 30.8 g/dL (31.0-37.0); MCV 98.9 fL (80.0-100.0); Macrocytosis Slight; Mean Platelet Volume 8.7; Monocytes # (A) 0.9 k/uL (0-1.0); Monocytes % (A) 7 %; Neutrophils # (A) 10.8 k/uL (1.3-7.7); Neutrophils % (A) 82 %; RBC 3.91 m/uL (4.30-5.90); WBC 13.3 k/uL (3.8-10.6)
[2020-07-11 06:50] LABS: Platelet Count 58 k/uL (150-450)
[2020-07-11 06:56] LABS: Glucose,Whole Blood 110 mg/dL (75-99)
[2020-07-11 07:13] LABS: Calcium 8.8 mg/dL (8.4-10.2); Magnesium 1.9 mg/dL (1.6-2.3); Potassium 4.7 mmol/L (3.5-5.1)
[2020-07-11] MEDS ORDERED: INSULN ASP PRT/INSULIN ASPART 100 UNIT/ML 10 ML VIAL SQ SCH ×2 (09:00→21:00)
[2020-07-11] MEDS: HYDROXYCHLOROQUINE SULFATE 200 MG TAB PO SCH ×2 (09:44→20:40)
[2020-07-11] MEDS: GABAPENTIN 400 MG CAP PO SCH ×4 (09:45→20:46)
[2020-07-11] MEDS: CHOLECALCIFEROL 1,000 UNIT TAB PO SCH (09:45)
[2020-07-11] MEDS: allopurinoL 300 MG TAB PO SCH (09:45)
[2020-07-11] MEDS: hydrALAZINE HCL 50 MG TAB PO SCH ×3 (09:45→22:18)
[2020-07-11] MEDS: CYANOCOBALAMIN 500 MCG TAB PO SCH (09:45)
[2020-07-11] MEDS: METOPROLOL TARTRATE 25 MG TAB PO SCH ×2 (09:46→20:40)
[2020-07-11] MEDS: predniSONE 20 MG TAB PO SCH (09:46)
[2020-07-11] MEDS: SODIUM BICARBONATE TAB 650 MG TAB PO SCH ×3 (09:47→22:18)
[2020-07-11 11:08] VITALS: BMI 31.7
--- NOTE | 2020-07-11 11:45 | P.CRDCN ---
History of Present Illness Consult date: 07/11/20 History of present illness: CHIEF COMPLAINT: CHF HISTORY OF PRESENT ILLNESS: 74-year-old female who has a history of COPD, chr onic kidney disease, hypertension, hyperlipidemia, and diabetes mellitus who presented to the hospital with a chief complaint of leg swelling and shortness of breath. Patient follows up outpatient with Dr. Ohara. Cardiology was consulted for further evaluation. Patient states he was recently hospitalized for thrombocytopenia. He states he felt well at the time of discharge but recently he has been having shortness of breath at rest and with exertion and swelling in his extremities. He reports gaining 12 pounds over the past week. He denies any chest pain. Denies palpitations. Denies cough or phlegm production. He reports shortness of breath while laying flat which is not his baseline. He does report he sleeps at home with 3 pillows. DIAGNOSTICS: EKG reveals sinus rhythm. Heart rate 68. Chest xray mild heart failure. Cardiomegaly. Laboratory data: WBC 13.3. Hemoglobin 11.9. Platelet count 58. Sodium 137. Potassium 4.7. BUN 63. Creatinine 1.87. Troponin 0.051. 0.046. 0.048. Current home cardiac medications include hydralazine 25 mg 3 times a day, Lopressor 25 mg twice a day, and Lipitor 40 mg daily Atrial fibrillation had an echocardiogram completed in February 2020 revealing ejection fraction of 50%, moderate mitral regurgitation, mild tricuspid regurgitation, and moderate aortic regurgitation and stenosis. REVIEW OF SYSTEMS: CONSTITUTIONAL: Denies fever or chills. HEENT: Denies blurred vision, vision changes, or eye pain. Denies hemoptysis CARDIOVASCULAR: Denies chest pain or palpitations. Reports recent weight gain of 12 pounds and increased swelling to his lower extremities RESPIRATORY: Reports shortness of breath. GASTROINTESTINAL: Denies abdominal pain. Denies nausea or vomiting. HEMATOLOGIC: Reports history of low platelet count GENITOURINARY: Denies any blood in urine. SKIN: Denies pruitis. Denies rash. PHYSICAL EXAM: VITAL SIGNS: Reviewed. GENERAL: Well-developed in no acute distress. HEENT: Head is normocephalic. Pupils are equal, round. Sclerae anicteric. Mucous membranes of the mouth are moist. Neck supple. No JVD or thyromegaly LUNGS: Respirations even and unlabored. Lungs essentially clear to auscultation bilaterally. HEART: Regular rate and rhythm. S1 and S2 heard. Systolic murmur. ABDOMEN: Soft. Nondistended. Nontender. EXTREMITIES: Normal range of motion. No clubbing or cyanosis. Peripheral pulses intact. 2+ bilateral lower extremity edema NEUROLOGIC: Awake and alert. Oriented x 3. ASSESSMENT: 1. Acute exacerbation of diastolic congestive heart failure, most recent echo reveals ejection fraction of 50% with moderate mitral regurgitation, moderate aortic regurgitation and moderate aortic stenosis 2. History of coronary artery disease with previous CABG 3. Hypertension 4. Hyperlipidemia 5. Diabetes mellitus 6. Chronic kidney disease PLAN: -Continue current cardiac medications -Continue IV Lasix 40 mg IV every 12 hours -Monitor kidney function -Daily weights -Accurate intake and output -Obtain 2-D echo to assess cardiac structure and function Nurse practitioner note has been reviewed by physician. Signing provider agrees with the documented findings, assessment, and plan of care. 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, mononucal gammopathy, melanoma removed from bilateral arms/scalp, gout bilateral feet/toes/knees, arthritis in multiple joints, limited ROM bilateral shoulders, migraines, IDDM type II, neuropathy bilateral legs/feet and hands, MD per EKG, CKD stage III, balance issues, vertigo, pst L lower leg cellulitis, hypothyroid, beginnings bilateral eye cataracts Last Myocardial Infarction Date:: 2015 History of Any Multi-Drug Resistant Organisms: None Reported Past Surgical History: Back Surgery, Coronary Bypass/CABG, Heart Catheterization, Orthopedic Surgery Additional Past Surgical History / Comment(s): 2016 CABG 4 vessel, melanoma removed bilateral arms/scalp, bilateral carpal tunnel releases and L ring finger trigger finger release, R knee patella tendon repair, low back surgery, bilateral shoulders RCR, colonoscopies/benign polyps removed. Past Anesthesia/Blood Transfusion Reactions: No Reported Reaction Past Psychological History: No Psychological Hx Reported Additional Psychological History / Comment(s): Pt resides with his spouse. He is a who served in the [employer] form [id number]. He uses a cane to ambulate. He drives. Smoking Status: Never smoker Past Alcohol Use History: None Reported Past Drug Use History: None Reported - Past Family History Mother Family Medical History: Congestive Heart Failure (CHF), Diabetes Mellitus, Myoc ardial Infarction (MD) Additional Family Medical History / Comment(s): Mother had MD found on EKG when she was in her 40s. Father Family Medical History: Cancer, Myocardial Infarction (MD), Renal Disease Additional Family Medical History / Comment(s): squamous cell skin cancer, ESRD, at 89yrs from [place] Sister(s) Family Medical History: Cancer Additional Family Medical History / Comment(s): squamous and basal cell skin cancer Medications and Allergies Home Medications Medication Instructions Recorded Confirmed Type Allopurinol [Zyloprim] 300 mg PO DAILY 08/28/16 07/10/20 History Gabapentin [Neurontin] 400 mg PO AC-TID 08/28/16 07/10/20 History Levothyroxine Sodium [Synthroid] 100 mcg PO DAILY 08/28/16 07/10/20 History Metoprolol Tartrate [Lopressor] 25 mg PO Q12H 08/28/16 07/10/20 History Cholecalciferol (Vitamin D3) 2,000 unit PO DAILY 12/15/18 07/10/20 History [Vitamin D3] Colchicine 0.6 - 1.2 mg PO DIRECTED PRN 12/15/18 07/10/20 History Gabapentin [Neurontin] 800 mg PO HS 12/15/18 07/10/20 History Sodium Bicarbonate Tab 650 mg PO TID 12/15/18 07/10/20 History Atorvastatin Calcium [Lipitor] 40 mg PO HS 06/27/20 07/10/20 History Hydroxychloroquine Sulfate 200 mg PO BID 06/27/20 07/10/20 History [Plaquenil] Ondansetron [Zofran] 4 mg PO DAILY PRN 06/27/20 07/10/20 History Cyanocobalamin [Vitamin B-12] 1,000 mcg PO DAILY #30 tab 06/29/20 07/10/20 Rx Pantoprazole [Protonix] 40 mg PO AC-BID #14 tablet. 06/29/20 07/10/20 Rx predniSONE [Deltasone] 60 mg PO DAILY 15 Days #45 tab 06/29/20 07/10/20 Rx Insulin NPH Hum/Reg Insulin Hm 30 unit SQ HS 07/10/20 07/10/20 History [NovoLIN 70-30 100 UNIT/ML VIAL] Insulin NPH Hum/Reg Insulin Hm 40 unit SQ DAILY 07/10/20 07/10/20 History [NovoLIN 70-30 100 UNIT/ML VIAL] hydrALAZINE HCL [Apresoline] 50 mg PO TID 07/10/20 07/10/20 History Allergies Allergy/AdvReac Type Severity Reaction Status Date / Time ibuprofen [From Motrin] AdvReac HEADACHES Verified 07/10/20 15:21 Physical Exam Vitals: Vital Signs Temp Pulse Pulse Resp BP BP Pulse Ox 07/11/20 04:00 98.5 F 62 18 158/90 95 07/10/20 23:56 60 20 07/10/20 23:51 60 20 156/88 95 07/10/20 20:00 98.4 F 63 20 187/85 94 L 07/10/20 18:40 98.3 F 74 22 214/95 96 07/10/20 18:21 98.0 F 76 18 195/91 96 07/10/20 18:00 76 18 195/91 96 07/10/20 17:48 67 18 198/94 96 07/10/20 17:29 87 18 183/90 97 07/10/20 16:58 65 18 180/87 96 07/10/20 16:00 66 15 168/83 96 07/10/20 15:51 67 23 07/10/20 15:21 22 07/10/20 15:18 98.0 F 72 22 182/69 97 Intake and Output 07/10/20 07/11/20 07/11/20 22:59 06:59 14:59 Intake Total 120 540 Output Total 280 1350 700 Balance -280 -1230 -160 Intake: Oral 120 540 Output: Urine 280 1350 700 Other: # Voids 4 Weight 113.3 kg 112.1 kg Results 07/11/20 06:22 07/11/20 06:22 Cardiac Enzymes 07/10/20 07/10/20 07/10/20 Range/Units 15:53 15:53 17:49 AST 53 (17-59) U/L Troponin I 0.051 H* 0.046 H* (0.000-0.034) ng/mL 07/10/20 Range/Units 21:24 AST (17-59) U/L Troponin I 0.048 H* (0.000-0.034) ng/mL Coagulation 07/10/20 Range/Units 15:53 PT 9.6 (9.0-12.0) sec APTT 22.1 (22.0-30.0) sec CBC 07/10/20 07/11/20 Range/Units 15:53 06:22 WBC 11.9 H 13.3 H (3.8-10.6) k/uL RBC 3.71 L 3.91 L (4.30-5.90) m/uL Hgb 11.5 L 11.9 L (13.0-17.5) gm/dL Hct 36.3 L 38.7 L (39.0-53.0) % Plt Count 54 L 58 L (150-450) k/uL Comprehensive Metabolic Panel 07/10/20 07/11/20 Range/Units 15:53 06:22 Sodium 133 L 137 (137-145) mmol/L Potassium 5.3 H 4.7 (3.5-5.1) mmol/L Chloride 106 107 (98-107) mmol/L Carbon Dioxide 20 L 22 (22-30) mmol/L BUN 60 H 63 H (9-20) mg/dL Creatinine 1.78 H 1.87 H (0.66-1.25) mg/dL Glucose 263 H 54 L (74-99) mg/dL Calcium 8.2 L 8.8 (8.4-10.2) mg/dL AST 53 (17-59) U/L ALT 123 H (4-49) U/L Alkaline Phosphatase 50 (38-126) U/L Total Protein 5.8 L (6.3-8.2) g/dL Albumin 3.0 L (3.5-5.0) g/dL Current Medications Generic Name Dose Route Start Last Admin Trade Name Freq PRN Reason Stop Dose Admin Allopurinol 300 mg 07/11/20 09:00 Zyloprim PO DAILY LEE Atorvastatin Calcium 40 mg 07/10/20 21:00 07/10/20 20:14 Lipitor PO 40 mg HS LEE Administration Cholecalciferol 2,000 unit 07/11/20 09:00 Vitamin D3 (25 Mcg = 1000 Iu) PO DAILY [facility] Cyanocobalamin 1,000 mcg 07/11/20 09:00 Vitamin B-12 PO DAILY [facility] Docusate Sodium 100 mg 07/10/20 17:13 Colace PO BID PRN Constipation Furosemide 40 mg 07/11/20 06:00 07/11/20 05:31 Lasix IV 40 mg Q12H LEE Administration Gabapentin 400 mg 07/11/20 07:30 Neurontin PO AC-TID LEE Gabapentin 800 mg 07/10/20 21:00 07/10/20 20:14 Neurontin PO 800 mg HS [facility] Administration Hydralazine HCl 50 mg 07/10/20 22:00 07/10/20 20:14 Apresoline PO 50 mg TID [facility] Administration Hydroxychloroquine Sulfate 200 mg 07/10/20 21:00 07/10/20 20:15 Plaquenil PO 200 mg BID LEE Administration Insulin Aspart 30 unit 07/10/20 21:00 07/10/20 20:15 Novolog Mix 70-30 Vial SQ 30 unit HS [facility] Administration Insulin Aspart 40 unit 07/11/20 09:00 Novolog Mix 70-30 Vial SQ DAILY [facility] Levothyroxine Sodium 100 mcg 07/11/20 06:30 07/11/20 05:32 Synthroid PO 100 mcg DAILY@0630 [facility] Administration Metoprolol Tartrate 25 mg 07/10/20 18:30 07/10/20 18:42 Lopressor PO 25 mg Q12HR [facility] Administration Naloxone HCl 0.2 mg 07/10/20 17:13 Narcan IV Q2M PRN Opioid Reversal Nitroglycerin 1 inch 07/10/20 18:00 07/10/20 20:15 Nitro-Bid Oint TOPICAL 1 inch QID [facility] Administration Pantoprazole Sodium 40 mg 07/11/20 07:30 07/11/20 05:37 Protonix PO Not Given AC-BID [facility] Prednisone 60 mg 07/11/20 09:00 PO DAILY [facility] Sodium Bicarbonate 650 mg 07/10/20 22:00 07/10/20 20:14 Sodium Bicarbonate Tab PO 650 mg TID [facility] Administration Intake and Output 07/10/20 07/11/20 07/11/20 22:59 06:59 14:59 Intake Total 120 540 Output Total 280 1350 700 Balance -280 -1230 -160 Intake: Oral 120 540 Output: Urine 280 1350 700 Other: # Voids 4 Weight 113.3 kg 112.1 kg 07/11/20 06:22 07/11/20 06:22
[2020-07-11 11:46] LABS: Glucose,Whole Blood 33 mg/dL (75-99)
[2020-07-11 11:49] LABS: Glucose,Whole Blood 37 mg/dL (75-99)
--- NOTE | 2020-07-11 11:54 | ECHOF ---
Referral Reason:BNP elevation MEASUREMENTS -------- HEIGHT: 182.9 cm WEIGHT: 112.0 kg BP: 158/90 RVIDd: 3.4 cm (< 3.3) IVSd: 1.5 cm (0.6 - 1.1) LVIDd: 4.9 cm (3.9 - 5.3) LVPWd: 1.5 cm (0.6 - 1.1) IVSs: 1.8 cm LVIDs: 3.4 cm LVPWs: 2.0 cm Ao Diam: 3.5 cm (2.0 - 3.7) AV Cusp: 1.1 cm (1.5 - 2.6) LA Diam: 5.1 cm (2.7 - 3.8) MV EXCURSION: 16.009 mm (> 18.000) MV EF SLOPE: 117 mm/s (70 - 150) EPSS: 1.3 cm MV E Vladimir: 0.72 m/s MV DecT: 230 ms MV A Vladimir: 0.51 m/s MV E/A Ratio: 1.42 AV maxP.08 mmHg AV meanP.86 mmHg AR PHT: 570 ms RAP: 5.00 mmHg RVSP: 20.59 mmHg FINDINGS -------- Sinus rhythm. This was a technically difficult study with suboptimal views. The left ventricular size is normal. There is moderate concentric left ventricular hypertrophy. O verall left ventricular systolic function is low-normal with, an EF between 50 - 55 %. The diastoli c filling pattern is normal for the age of the patient 8.35. The right ventricle is mildly enlarged. The left atrium is moderately dilated. The right atrial size is normal. Lumason used Aortic valve is trileaflet and is moderately thickened. There is [id number] aortic regurgitat ion. There is mild aortic stenosis present. Peak/mean gradient across the Aortic Valve is 26.08mm Hg / 16.86mmHg. The mitral valve is normal. Mild mitral regurgitation is present. The tricuspid valve appears structurally normal. Mild tricuspid regurgitation present. Right vent ricular systolic pressure is normal at < 35 mmHg. The pulmonic valve was not well visualized. Trace/mild (physiologic) pulmonic regurgitation. The aortic root size is normal. IVC Not well visulized. There is no pericardial effusion. CONCLUSIONS -------- 1. There is moderate concentric left ventricular hypertrophy. 2. Overall left ventricular systolic function is low-normal with, an EF between 50 - 55 %. 3. The diastolic filling pattern is normal for the age of the patient 8.35 4. The right ventricle is mildly enlarged. 5. The left atrium is moderately dilated. 6. Aortic valve is trileaflet and is moderately thickened. 7. There is [id number] aortic regurgitation. 8. There is mild aortic stenosis present. 9. Peak/mean gradient across the Aortic Valve is 26.08mmHg / 16.86mmHg. 10. Mild mitral regurgitation is present. 11. Mild tricuspid regurgitation present. 12. Trace/mild (physiologic) pulmonic regurgitation. RETAIL OPERATIONS SPECIALIST: Camelia Parker RDCS
[2020-07-11 12:07] LABS: Glucose,Whole Blood 83 mg/dL (75-99)
[2020-07-11] MEDS: NITROGLYCERIN OINT 1 INCH/GM PACKET TOPICAL SCH ×4 (12:24→22:19)
[2020-07-11 12:55] LABS: Glucose,Whole Blood 56 mg/dL (75-99)
--- NOTE | 2020-07-11 12:56 | P.PN ---
Subjective Progress Note Date: 07/11/20 Patient was seen and examined. No acute events overnight. Patient reports considerable improvement in his breathing since admission. Slight improvement in his lower chuck swelling. He denies any chest pain or palpitations but no nausea or vomiting. No fever or chills. Objective - Vital Signs Vital signs: Vital Signs Temp 98.5 F 07/11/20 04:00 Pulse 62 07/11/20 04:00 Resp 18 07/11/20 04:00 BP 158/90 07/11/20 04:00 Pulse Ox 95 07/11/20 04:00 Intake & Output 07/10/20 07/11/20 07/11/20 18:59 06:59 18:59 Intake Total 120 540 Output Total 280 1350 700 Balance -280 -1230 -160 Weight 113.3 kg 112.1 kg 112.1 kg Intake: Oral 120 540 Output: Urine 280 1350 700 Other: # Voids 4 - Exam General: [non toxic], [no distress], [appears at stated age] Derm: [warm], [dry] Head: [atraumatic], [normocephalic], [symmetric] Eyes: [EOMI], [no lid lag], [anicteric sclera] Mouth: [no lip lesion], [mucus membranes moist] Cardiovascular: [S1S2 reg], [systolic murmur], [positive posterior tibial pulse bilateral], Lungs: [Decreased breath sounds bilateral], [no rhonchi, no rales] , [no accessory muscle use] Abdominal: [soft], [ nontender to palpation], [no guarding], [no appreciable organomegaly] Ext: [no gross muscle atrophy], [1+ pitting lower extremity edema], [no contractures] Neuro: [no focal neuro deficits] Psych: [Alert], [oriented], [appropriate affect] - Labs CBC & Chem 7: 07/11/20 06:22 07/11/20 06:22 Labs: Abnormal Lab Results - Last 24 Hours (Table) 07/10/20 07/10/20 07/10/20 Range/Units 15:53 15:53 15:53 WBC 11.9 H (3.8-10.6) k/uL RBC 3.71 L (4.30-5.90) m/uL Hgb 11.5 L (13.0-17.5) gm/dL Hct 36.3 L (39.0-53.0) % MCHC (31.0-37.0) g/dL RDW 16.0 H (11.5-15.5) % Plt Count 54 L (150-450) k/uL Neutrophils # 11.1 H (1.3-7.7) k/uL Lymphocytes # 0.3 L (1.0-4.8) k/uL Sodium 133 L (137-145) mmol/L Potassium 5.3 H (3.5-5.1) mmol/L Carbon Dioxide 20 L (22-30) mmol/L BUN 60 H (9-20) mg/dL Creatinine 1.78 H (0.66-1.25) mg/dL Glucose 263 H (74-99) mg/dL POC Glucose (mg/dL) (75-99) mg/dL Calcium 8.2 L (8.4-10.2) mg/dL ALT 123 H (4-49) U/L Troponin I 0.051 H* (0.000-0.034) ng/mL Total Protein 5.8 L (6.3-8.2) g/dL Albumin 3.0 L (3.5-5.0) g/dL 07/10/20 07/10/20 07/10/20 Range/Units 17:49 18:38 19:55 WBC (3.8-10.6) k/uL RBC (4.30-5.90) m/uL Hgb (13.0-17.5) gm/dL Hct (39.0-53.0) % MCHC (31.0-37.0) g/dL RDW (11.5-15.5) % Plt Count (150-450) k/uL Neutrophils # (1.3-7.7) k/uL Lymphocytes # (1.0-4.8) k/uL Sodium (137-145) mmol/L Potassium (3.5-5.1) mmol/L Carbon Dioxide (22-30) mmol/L BUN (9-20) mg/dL Creatinine (0.66-1.25) mg/dL Glucose (74-99) mg/dL POC Glucose (mg/dL) 185 H 204 H (75-99) mg/dL Calcium (8.4-10.2) mg/dL ALT (4-49) U/L Troponin I 0.046 H* (0.000-0.034) ng/mL Total Protein (6.3-8.2) g/dL Albumin (3.5-5.0) g/dL 07/10/20 07/11/20 07/11/20 Range/Units 21:24 06:22 06:22 WBC 13.3 H (3.8-10.6) k/uL RBC 3.91 L (4.30-5.90) m/uL Hgb 11.9 L (13.0-17.5) gm/dL Hct 38.7 L (39.0-53.0) % MCHC 30.8 L (31.0-37.0) g/dL RDW 16.0 H (11.5-15.5) % Plt Count 58 L (150-450) k/uL Neutrophils # 10.8 H (1.3-7.7) k/uL Lymphocytes # (1.0-4.8) k/uL Sodium (137-145) mmol/L Potassium (3.5-5.1) mmol/L Carbon Dioxide (22-30) mmol/L BUN 63 H (9-20) mg/dL Creatinine 1.87 H (0.66-1.25) mg/dL Glucose 54 L (74-99) mg/dL POC Glucose (mg/dL) (75-99) mg/dL Calcium (8.4-10.2) mg/dL ALT (4-49) U/L Troponin I 0.048 H* (0.000-0.034) ng/mL Total Protein (6.3-8.2) g/dL Albumin (3.5-5.0) g/dL 07/11/20 07/11/20 07/11/20 Range/Units 06:25 06:40 06:55 WBC (3.8-10.6) k/uL RBC (4.30-5.90) m/uL Hgb (13.0-17.5) gm/dL Hct (39.0-53.0) % MCHC (31.0-37.0) g/dL RDW (11.5-15.5) % Plt Count (150-450) k/uL Neutrophils # (1.3-7.7) k/uL Lymphocytes # (1.0-4.8) k/uL Sodium (137-145) mmol/L Potassium (3.5-5.1) mmol/L Carbon Dioxide (22-30) mmol/L BUN (9-20) mg/dL Creatinine (0.66-1.25) mg/dL Glucose (74-99) mg/dL POC Glucose (mg/dL) 60 L 68 L 110 H (75-99) mg/dL Calcium (8.4-10.2) mg/dL ALT (4-49) U/L Troponin I (0.000-0.034) ng/mL Total Protein (6.3-8.2) g/dL Albumin (3.5-5.0) g/dL 07/11/20 07/11/20 Range/Units 11:45 11:47 WBC (3.8-10.6) k/uL RBC (4.30-5.90) m/uL Hgb (13.0-17.5) gm/dL Hct (39.0-53.0) % MCHC (31.0-37.0) g/dL RDW (11.5-15.5) % Plt Count (150-450) k/uL Neutrophils # (1.3-7.7) k/uL Lymphocytes # (1.0-4.8) k/uL Sodium (137-145) mmol/L Potassium (3.5-5.1) mmol/L Carbon Dioxide (22-30) mmol/L BUN (9-20) mg/dL Creatinine (0.66-1.25) mg/dL Glucose (74-99) mg/dL POC Glucose (mg/dL) 33 L 37 L (75-99) mg/dL Calcium (8.4-10.2) mg/dL ALT (4-49) U/L Troponin I (0.000-0.034) ng/mL Total Protein (6.3-8.2) g/dL Albumin (3.5-5.0) g/dL Assessment and Plan Assessment: Type 2 diabetes mellitus with hypoglycemia Acute CHF exacerbation Troponin elevation Chronic kidney disease stage III. Hypertension Dyslipidemia Monoclonal gammopathy of undetermined significance ITP Accu-Chek 37 this morning resolved with oral intake. Plans: Cut insulin dosing in half. Regular Accu-Cheks. Hypoglycemic precautions. Echo cardiac shows EF 50-55% with moderate concentric LVH. Plans: Continue Lasix 40 mg IV twice a day. Continue beta esther. Strict intake and output takes. Daily weights. Follow cardiology consultation. Low-salt diet. Troponin 0.051, 0.046, 0.048 with EKG showing normal sinus rhythm. Likely troponin leak from CKD and CHF. Acute coronary syndrome ruled out. Plans: Telemetry monitoring. Creatinine 1.87. Appears at baseline. Plans: Avoid nephrotoxins. Continue sodium bicarbonate supplementation. Repeat BMP tomorrow morning. Renal diet. BP 158/90. Plans: Continue hydralazine and metoprolol. Monitor vitals, adjust medications if necessary. Plans: Continue Lipitor. Plans: Follow oncology in the outpatient setting. Plans: Continue prednisone. Daily CBC. DVT prophylaxis - no heparin due to thrombocytopenia. Start SCD boots. [Patient omitted for CHF exacerbation. Improving. He is pending clinical improvement. Likely DC in 1-2 days.]
[2020-07-11 13:12] LABS: Glucose,Whole Blood 78 mg/dL (75-99)
[2020-07-11 17:09] LABS: Glucose,Whole Blood 169 mg/dL (75-99)
[2020-07-11] MEDS ORDERED: cloNIDine HCL 0.2 MG TAB PO STA (19:59)
[2020-07-11] MEDS ORDERED: ACETAMINOPHEN TAB 325 MG TAB PO PRN (19:59)
[2020-07-11 20:34] LABS: Glucose,Whole Blood 254 mg/dL (75-99)
[2020-07-11] MEDS: ATORVASTATIN 40 MG TAB PO SCH (20:40)
[2020-07-11] MEDS ORDERED: ENOXAPARIN 100 MG/ML SYRINGE SQ SCH (21:00)
[2020-07-11 23:30] VITALS: RESP 16
[2020-07-12 02:11] LABS: Glucose,Whole Blood 100 mg/dL (75-99)
[2020-07-12 06:12] LABS: Glucose,Whole Blood 92 mg/dL (75-99)
[2020-07-12] MEDS: GABAPENTIN 400 MG CAP PO SCH (06:18)
[2020-07-12] MEDS: PANTOPRAZOLE 40 MG TABLET PO SCH (06:18)
[2020-07-12] MEDS: FUROSEMIDE 10 MG/ML 4 ML VIAL IV SCH (06:18)
[2020-07-12] MEDS: LEVOTHYROXINE 100 MCG TAB PO SCH (06:18)
[2020-07-12 07:10] LABS: Basophils % (A) 0 %; Eosinophils % (A) 1 %; HCT 35.7 % (39.0-53.0); HGB 11.3 gm/dL (13.0-17.5); Lymphocytes # (A) 0.8 k/uL (1.0-4.8); Lymphocytes % (A) 11 %; MCH 30.8 pg (25.0-35.0); MCHC 31.6 g/dL (31.0-37.0); MCV 97.3 fL (80.0-100.0); Macrocytosis Slight; Mean Platelet Volume 9.1; Monocytes # (A) 0.5 k/uL (0-1.0); Monocytes % (A) 7 %; Neutrophils # (A) 6.4 k/uL (1.3-7.7); Neutrophils % (A) 81 %; RBC 3.67 m/uL (4.30-5.90); RDW 15.8 % (11.5-15.5); WBC 7.9 k/uL (3.8-10.6)
[2020-07-12 07:17] LABS: Platelet Count 42 k/uL (150-450)
[2020-07-12 07:22] LABS: Calcium 8.6 mg/dL (8.4-10.2); Magnesium 1.7 mg/dL (1.6-2.3); Potassium 5.1 mmol/L (3.5-5.1)
[2020-07-12 08:33] VITALS: BP 151/80; PULSE 56; TEMP 98
[2020-07-12] MEDS: CHOLECALCIFEROL 1,000 UNIT TAB PO SCH (08:36)
[2020-07-12] MEDS: allopurinoL 300 MG TAB PO SCH (08:36)
[2020-07-12] MEDS: CYANOCOBALAMIN 500 MCG TAB PO SCH (08:37)
[2020-07-12] MEDS: HYDROXYCHLOROQUINE SULFATE 200 MG TAB PO SCH (08:37)
[2020-07-12] MEDS: hydrALAZINE HCL 50 MG TAB PO SCH (08:37)
[2020-07-12] MEDS: predniSONE 20 MG TAB PO SCH (08:38)
[2020-07-12] MEDS: SODIUM BICARBONATE TAB 650 MG TAB PO SCH (08:38)
[2020-07-12] MEDS: NITROGLYCERIN OINT 1 INCH/GM PACKET TOPICAL SCH (08:38)
[2020-07-12] MEDS: METOPROLOL TARTRATE 25 MG TAB PO SCH (08:38)
[2020-07-12] MEDS ORDERED: INSULN ASP PRT/INSULIN ASPART 100 UNIT/ML 10 ML VIAL SQ SCH (09:00)
--- NOTE | 2020-07-12 10:11 | P.DS ---
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 Pt tells me that since his discharge, he has been gaining abdominal girth, leg swelling, and his exercise tolerance has become more poor. he has also devleoped orthopneic symptoms. He denies chest pain, palps, syncope, presyncope, fevers, chills, nausea, vomiting, constipation, diarrhea, abdominal pain, numbness/weakness. On admission, his vital signs were 195/91, HR 76, 96% on 2L NC. CBC shows leukocytosis of 11.9, PLT of 54. Chemistries show Na 133, K 5.3, BUN/Cr 60/1.8[place] [address], Trop 0.051. CXR appears to have increased vascular congestion, and alveolar infiltrate diffusely. 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 He was diuresed with Lasix 40 mg IV twice a day. Strict intake and obtain excellent with daily weights were ordered. Cardiology was consulted and echocardiogram was ordered. Echocardiogram showed EF 50-55% with moderate concentric LVH. Patient's shortness of breath improved considerably with diuresis. His weight dropped from 114 kg on admission to 109 kg on discharge. He had elevated troponins of 0.041, 0.046, 0.048 with EKG showing normal sinus rhythm with T-wave inversion. Acute coronary syndrome was ruled out. This was thought to be troponin leak from chronic kidney disease and CHF. Patient did have an episode of hypoglycemia that resolved with oral intake. His insulin dosing was cut in half during his hospitalization. Patient was seen and examined. No acute events overnight. Patient reports considerable improvement in his breathing. He denies any chest pain, shortness breath or palpitations. No nausea or vomiting. No fever or chills. General: [non toxic], [no distress], [appears at stated age] Derm: [warm], [dry] Head: [atraumatic], [normocephalic], [symmetric] Eyes: [EOMI], [no lid lag], [anicteric sclera] Mouth: [no lip lesion], [mucus membranes moist] Cardiovascular: [S1S2 reg], [systolic murmur], [positive posterior tibial pulse bilateral], Lungs: [Decreased breath sounds bilateral], [no rhonchi, no rales] , [no accessory muscle use] Abdominal: [soft], [ nontender to palpation], [no guarding], [no appreciable organomegaly] Ext: [no gross muscle atrophy], [1+ pitting lower extremity edema], [no contractures] Neuro: [no focal neuro deficits] Psych: [Alert], [oriented], [appropriate affect] Type 2 diabetes mellitus with hypoglycemia resolved Acute CHF exacerbation Troponin elevation Chronic kidney disease stage III. Hypertension Dyslipidemia Monoclonal gammopathy of undetermined significance ITP His hypoglycemia has resolved. Plans: Continue insulin dosing in half. Regular Accu-Cheks. Hypoglycemic precautions. Echocardiogram shows EF 50-55% with moderate concentric LVH. Plans: Transitioned to Lasix 40 mg by mouth twice a day. Continue beta esther. Needs better blood pressure control. Daily weights. Follow cardiology consultation. Low-salt diet. Troponin 0.051, 0.046, 0.048 with EKG showing normal sinus rhythm. Likely troponin leak from CKD and CHF. Acute coronary syndrome ruled out. Plans: Telemetry monitoring. Creatinine 1.97. Appears at baseline. Plans: Avoid nephrotoxins. Continue sodium bicarbonate supplementation. Renal diet. Follow nephrology outpatient setting. BP 151/80. Plans: Continue hydralazine and metoprolol. Monitor vitals, adjust medications if necessary. Plans: Continue Lipitor. Plans: Follow oncology in the outpatient setting. Plans: Continue prednisone. Daily CBC. DVT prophylaxis - no heparin due to thrombocytopenia. Start SCD boots. [Patient admitted for CHF exacerbation. Improving. Anticipated DC home today. This complex discharge took about 35 minutes to complete.] Pertinent Studies: Chest x-ray, echocardiogram Patient Condition at Discharge: Stable Plan - Discharge Summary Discharge Rx Participant: Yes New Discharge Prescriptions: New Furosemide [Lasix] 40 mg PO DAILY #30 tablet Continue Metoprolol Tartrate [Lopressor] 25 mg PO Q12H Levothyroxine Sodium [Synthroid] 100 mcg PO DAILY Gabapentin [Neurontin] 400 mg PO AC-TID Allopurinol [Zyloprim] 300 mg PO DAILY Sodium Bicarbonate Tab 650 mg PO TID Colchicine 0.6 - 1.2 mg PO DIRECTED PRN PRN Reason: gout attack Gabapentin [Neurontin] 800 mg PO HS Cholecalciferol (Vitamin D3) [Vitamin D3] 2,000 unit PO DAILY Hydroxychloroquine Sulfate [Plaquenil] 200 mg PO BID Atorvastatin Calcium [Lipitor] 40 mg PO HS Pantoprazole [Protonix] 40 mg PO AC-BID #14 tablet. Cyanocobalamin [Vitamin B-12] 1,000 mcg PO DAILY #30 tab predniSONE [Deltasone] 60 mg PO DAILY 15 Days #45 tab Insulin NPH Hum/Reg Insulin Hm [NovoLIN 70-30 100 UNIT/ML VIAL] 40 unit SQ DAILY hydrALAZINE HCL [Apresoline] 50 mg PO TID Insulin NPH Hum/Reg Insulin Hm [NovoLIN 70-30 100 UNIT/ML VIAL] 30 unit SQ HS Discontinued Ondansetron [Zofran] 4 mg PO DAILY PRN PRN Reason: Nausea Discharge Medication List Allopurinol [Zyloprim] 300 mg PO DAILY 08/28/16 [History] Gabapentin [Neurontin] 400 mg PO AC-TID 08/28/16 [History] Levothyroxine Sodium [Synthroid] 100 mcg PO DAILY 08/28/16 [History] Metoprolol Tartrate [Lopressor] 25 mg PO Q12H 08/28/16 [History] Cholecalciferol (Vitamin D3) [Vitamin D3] 2,000 unit PO DAILY 12/15/18 [History] Colchicine 0.6 - 1.2 mg PO DIRECTED PRN 12/15/18 [History] Gabapentin [Neurontin] 800 mg PO HS 12/15/18 [History] Sodium Bicarbonate Tab 650 mg PO TID 12/15/18 [History] Atorvastatin Calcium [Lipitor] 40 mg PO HS 06/27/20 [History] Hydroxychloroquine Sulfate [Plaquenil] 200 mg PO BID 06/27/20 [History] Cyanocobalamin [Vitamin B-12] 1,000 mcg PO DAILY #30 tab 06/29/20 [Rx] Pantoprazole [Protonix] 40 mg PO AC-BID #14 tablet. 08/12/20 [Rx] predniSONE [Deltasone] 60 mg PO DAILY 15 Days #45 tab 06/29/20 [Rx] Insulin NPH Hum/Reg Insulin Hm [NovoLIN 70-30 100 UNIT/ML VIAL] 30 unit SQ HS 07/10/20 [History] Insulin NPH Hum/Reg Insulin Hm [NovoLIN 70-30 100 UNIT/ML VIAL] 40 unit SQ DAILY 07/10/20 [History] hydrALAZINE HCL [Apresoline] 50 mg PO TID 07/10/20 [History] Furosemide [Lasix] 40 mg PO DAILY #30 tablet 07/12/20 [Rx] Follow up Appointment(s)/Referral(s): Emerson Wilder MD [Primary Care Provider] - 1-2 days David Rosraio MD [STAFF PHYSICIAN] - 1 Week Activity/Diet/Wound Care/Special Instructions: Diet: Low-salt, cardiac, renal Fluid restriction. Follow-up PCP within 3 days of discharge. Follow-up with cardiology within 1 week of discharge. Take all medications as advised. Come back to the ED or call 911 for worsening chest pain, shortness of breath, palpitations or dizziness. Discharge Disposition: HOME SELF-CARE
[2020-07-12 12:03] LABS: Glucose,Whole Blood 51 mg/dL (75-99)
[2020-07-12 12:27] LABS: Glucose,Whole Blood 84 mg/dL (75-99)
--- NOTE | 2020-07-12 13:15 | P.PN ---
Subjective Progress Note Date: 07/12/20 CHIEF COMPLAINT: CHF HISTORY OF PRESENT ILLNESS: patient seen and examined at the bedside this morning. he denies chest pain. He denies shortness of breath. He reports his lower extremity edema has improved. fluid balance over the last 24 hours is - 1400cc. creatinine 1.97 today up from 1.87 yesterday. echocardiogram completed reveals ejection fraction between 50 and 55%, [id number] aortic regurgitation, mild aortic stenosis, mild tricuspid regurgitation, and mild mitral regurgitation. PHYSICAL EXAM: VITAL SIGNS: Reviewed. GENERAL: Well-developed in no acute distress. HEENT: Head is normocephalic. Pupils are equal, round. Sclerae anicteric. Mucous membranes of the mouth are moist. Neck supple. No JVD or thyromegaly LUNGS: Respirations even and unlabored. Lungs essentially clear to auscultation bilaterally. HEART: Regular rate and rhythm. S1 and S2 heard. Systolic murmur. ABDOMEN: Soft. Nondistended. Nontender. EXTREMITIES: Normal range of motion. No clubbing or cyanosis. Peripheral pulses intact. 1+ bilateral lower extremity edema NEUROLOGIC: Awake and alert. Oriented x 3. ASSESSMENT: 1. Acute exacerbation of diastolic congestive heart failure, EF 50-55% 2. History of coronary artery disease with previous CABG 3. Hypertension 4. Hyperlipidemia 5. Diabetes mellitus 6. Chronic kidney disease PLAN: -Continue current cardiac medications -Monitor kidney function -Daily weights -Accurate intake and output -Patient requesting to be discharged home. Okay for discharge from a cardiac standpoint. Patient to be discharged home on Lasix 40 mg twice a day. he is to follow up with Dr. Ohara outpatient. Nurse practitioner note has been reviewed by physician. Signing provider agrees with the documented findings, assessment, and plan of care. Objective - Vital Signs Vital signs: Vital Signs Temp 98.0 F 07/12/20 08:00 Pulse 56 L 07/12/20 08:00 Resp 16 07/12/20 08:00 BP 151/80 07/12/20 08:00 Pulse Ox 97 07/12/20 08:00 Intake & Output 07/11/20 07/12/20 07/12/20 18:59 06:59 18:59 Intake Total 2040 310 680 Output Total 1700 2050 700 Balance 340 -1740 -20 Weight 112.1 kg 109.6 kg Intake: IV 10 20 Invasive Line 1 10 20 Oral 0 300 660 Output: Urine 1700 2050 700 Other: Voiding Method Urinal # Voids 1 - Labs CBC & Chem 7: 07/12/20 06:37 07/12/20 06:37 Labs: Abnormal Lab Results - Last 24 Hours (Table) 07/11/20 07/11/20 07/12/20 Range/Units 17:08 20:32 02:09 RBC (4.30-5.90) m/uL Hgb (13.0-17.5) gm/dL Hct (39.0-53.0) % RDW (11.5-15.5) % Plt Count (150-450) k/uL Lymphocytes # (1.0-4.8) k/uL Sodium (137-145) mmol/L BUN (9-20) mg/dL Creatinine (0.66-1.25) mg/dL POC Glucose (mg/dL) 169 H 254 H 100 H (75-99) mg/dL 07/12/20 07/12/20 07/12/20 Range/Units 06:37 06:37 12:02 RBC 3.67 L (4.30-5.90) m/uL Hgb 11.3 L (13.0-17.5) gm/dL Hct 35.7 L (39.0-53.0) % RDW 15.8 H (11.5-15.5) % Plt Count 42 L (150-450) k/uL Lymphocytes # 0.8 L (1.0-4.8) k/uL Sodium 134 L (137-145) mmol/L BUN 65 H (9-20) mg/dL Creatinine 1.97 H (0.66-1.25) mg/dL POC Glucose (mg/dL) 51 L (75-99) mg/dL
== END 2020-07-12 12:35 | disposition home or self-care (01) | DRG 291 ==
LOC: EC 15:15 → 3SCARD 17:14
PROVIDERS: ADMIT Internal Medicine; ATTEND Internal Medicine
DX: I13.0 Hypertensive heart and chronic kidney disease with heart failure and stage 1 through stage 4 chronic kidney disease, or unspecified chronic kidney disease (principal); I50.33 Acute on chronic diastolic (congestive) heart failure; D69.3 Immune thrombocytopenic purpura; D47.2 Monoclonal gammopathy; I25.10 Atherosclerotic heart disease of native coronary artery without angina pectoris; N18.3 Chronic kidney disease, stage 3 (moderate); E11.22 Type 2 diabetes mellitus with diabetic chronic kidney disease; M10.9 Gout, unspecified; G43.909 Migraine, unspecified, not intractable, without status migrainosus; I08.3 Combined rheumatic disorders of mitral, aortic and tricuspid valves; M19.90 Unspecified osteoarthritis, unspecified site; E11.40 Type 2 diabetes mellitus with diabetic neuropathy, unspecified; D72.829 Elevated white blood cell count, unspecified; E11.649 Type 2 diabetes mellitus with hypoglycemia without coma; R79.89 Other specified abnormal findings of blood chemistry; E03.9 Hypothyroidism, unspecified; J44.9 Chronic obstructive pulmonary disease, unspecified; H91.90 Unspecified hearing loss, unspecified ear; E78.5 Hyperlipidemia, unspecified; Z95.1 Presence of aortocoronary bypass graft; Z98.890 Other specified postprocedural states; Z79.890 Hormone replacement therapy; Z79.899 Other long term (current) drug therapy; Z79.4 Long term (current) use of insulin; Z88.6 Allergy status to analgesic agent; Z79.52 Long term (current) use of systemic steroids; I25.2 Old myocardial infarction; Z83.3 Family history of diabetes mellitus; Z82.49 Family history of ischemic heart disease and other diseases of the circulatory system; Z80.8 Family history of malignant neoplasm of other organs or systems; Z85.820 Personal history of malignant melanoma of skin
CPT/HCPCS: 36415; 71046; 80048; 80053; 80061; 83036; 83735; 83880; 84484; 84550; 85025; 85027; 85610; 85730; 93005; 93306; 96374; 99285

== ENCOUNTER → 2020-07-26 | Outpatient (CLI) | payer MEDICARE ==
[2020-07-26 10:58] LABS: African American GFR (CKD) 37.3 (60.0-200.0); Anion Gap 6.7 mmol/L (4.00-12.00); BUN/Creat Ratio 35.5 Ratio (12.00-20.00); Calcium 8.4 mg/dL (8.7-10.3); Carbon Dioxide 30.3 mmol/L (21.6-31.8); Non-African American GFR(CKD) 32.2 (60.0-200.0); Potassium 4.5 mmol/L (3.5-5.5)
== END | disposition home or self-care (01) ==
LOC: LABWHC1 07:13
PROVIDERS: ATTEND Internal Medicine Interventional Cardiology
DX: I12.9 Hypertensive chronic kidney disease with stage 1 through stage 4 chronic kidney disease, or unspecified chronic kidney disease (principal); N18.9 Chronic kidney disease, unspecified; I25.10 Atherosclerotic heart disease of native coronary artery without angina pectoris
CPT/HCPCS: 36415; 80048

== ENCOUNTER → 2021-04-18 | Outpatient (CLI) | payer MEDICARE ==
[2021-04-18 08:35] LABS: Anisocytosis Slight; HCT 36.8 % (39.0-53.0); HGB 11.3 gm/dL (13.0-17.5); Hypochromasia Slight; MCH 27.9 pg (25.0-35.0); MCHC 30.8 g/dL (31.0-37.0); MCV 90.6 fL (80.0-100.0); Mean Platelet Volume 8.2; Platelet Count 187 k/uL (150-450); RBC 4.06 m/uL (4.30-5.90); RDW 16.4 % (11.5-15.5); WBC 4.2 k/uL (3.8-10.6)
[2021-04-18 08:52] LABS: African American GFR (CKD) 17 (>60 ml/min/1.73 sqM); Anion Gap 7 mmol/L; Blood Urea Nitrogen 55 mg/dL (9-20); Calcium 9.4 mg/dL (8.4-10.2); Carbon Dioxide 31 mmol/L (22-30); Chloride 102 mmol/L (98-107); Glucose 106 mg/dL (74-99); Non-African American GFR(CKD) 15 (>60 ml/min/1.73 sqM); Potassium 4.2 mmol/L (3.5-5.1); Sodium 140 mmol/L (137-145)
== END | disposition home or self-care (01) ==
LOC: LABWHC1 07:16
PROVIDERS: ATTEND Internal Medicine Interventional Cardiology
DX: I25.10 Atherosclerotic heart disease of native coronary artery without angina pectoris (principal); D64.9 Anemia, unspecified
CPT/HCPCS: 36415; 80048; 85027

== ENCOUNTER → 2021-10-11 | Outpatient (CLI) | payer MEDICARE ==
[~2021-10-11] MED LIST changes: +BAMLANIVIMAB (EUA) 700 MG, ETESEVIMAB (EUA) 1,400 MG in SODIUM CHLORIDE 0.9% 50 ML IVPB ONE; -HYDROmorphone 0.5 MG/0.5 ML SYRINGE IVP PRN; -LACTATED RINGERS 1,000 ML IV SCH; -LIDOCAINE 1% 20 ML VIAL (10MG/ML) FOR IV START INTRADERMA PRN; -ONDANSETRON 4 MG/2 ML VIAL IVP ONE; +SODIUM CHLORIDE 0.9% 50 ML IVPB ONE; +SODIUM CHLORIDE 0.9% 500 ML 500 ML in EMPTY BAG 1 BAG IV PRN; -ceFAZolin IN SWFI 2 GM/20 ML SYRINGE IVP ONE
[2021-10-11 10:46] VITALS: RESP 16
[2021-10-11 11:43] VITALS: BP 130/70; PULSE 60; TEMP 98.6
== END ==
LOC: PROCWHC3 09:54
PROVIDERS: ATTEND Internal Medicine
DX: U07.1 COVID-19 (principal); E11.9 Type 2 diabetes mellitus without complications; N18.9 Chronic kidney disease, unspecified; Z88.6 Allergy status to analgesic agent
CPT/HCPCS: 96360; J3490; M0245

== ENCOUNTER 2022-01-10 06:48 | Day surgery (SDC) | payer MEDICARE ==
[2022-01-09 10:58] VITALS: BMI 28.8
[~2022-01-10 06:48] MED LIST changes: -BAMLANIVIMAB (EUA) 700 MG, ETESEVIMAB (EUA) 1,400 MG in SODIUM CHLORIDE 0.9% 50 ML IVPB ONE; +LACTATED RINGERS 1,000 ML IV SCH; +LIDOCAINE 1% (10MG/ML) FOR IV START INTRADERMA PRN; -SODIUM CHLORIDE 0.9% 50 ML IVPB ONE; -SODIUM CHLORIDE 0.9% 500 ML 500 ML in EMPTY BAG 1 BAG IV PRN; +TETRACAINE 0.5% OPHTH (PF) DROPS 4 ML BTL OP PRN
[2022-01-10] MEDS: CYCLOPENTOLATE 1% OPHTH SOLN 2 ML BTL OP PRN ×3 (07:53→08:01)
[2022-01-10] MEDS: PHENYLEPHRINE 2.5% OPHTH DRP 2ML OP PRN ×3 (07:53→08:05)
[2022-01-10 07:59] VITALS: TEMP 97.2
[2022-01-10 08:04] LABS: Glucose,Whole Blood 94 mg/dL (75-99)
[2022-01-10] MEDS ORDERED: MIDAZOLAM 2 MG/2 ML VIAL ONE (09:02)
[2022-01-10] MEDS ORDERED: fentaNYL (PF) 50 MCG/ML 2 ML AMP ONE (09:02)
[2022-01-10] MEDS ORDERED: LIDOCAINE 1% (PF) 10MG/ML VIAL MISCELLANE ONE (09:21)
[2022-01-10] MEDS ORDERED: HYALURONATE SODIUM INTRAOCULAR 1 EACH SYRINGE (12MG/ML) INTRAOCULA ONE (09:21)
[2022-01-10] MEDS ORDERED: BALANCED SALT IRRIG SOLN COMB2 15 ML IRRIG.SOLN IRRIGATION ONE (09:21)
[2022-01-10] MEDS: MOXIFLOXACIN HCL 0.5% DROPS 3 ML BTL OP PRN ×2 (09:22→09:27)
[2022-01-10] MEDS ORDERED: EPINEPHrine (PF) 0.3 ML in BALANCED SALT IRRIG SOLN COMB2 500 ML IRRIGATION ONE (09:22)
[2022-01-10] MEDS: TIMOLOL 0.5% OPHTH DROPS 5 ML BTL OP PRN ×2 (09:22→09:27)
--- NOTE | 2022-01-10 09:32 | P.OP ---
Date of Procedure: 01/10/22 Preoperative Diagnosis: NS & PSC Postoperative Diagnosis: same Procedure(s) Performed: PIOL, OD Implants: [id number] 20.00 Anesthesia: MAC Surgeon: Clay Young Pathology: none sent Condition: stable Disposition: same day Indications for Procedure: blurry vision Operative Findings: no complications
[2022-01-10 09:46] LABS: Glucose,Whole Blood 98 mg/dL (75-99)
[2022-01-10 09:55] VITALS: BP 137/70; PULSE 61; RESP 17
--- NOTE | 2022-01-10 15:14 | OP ---
OPERATIVE REPORT DATE OF SERVICE: January 10, 2022. PROCEDURES: Phacoemulsification of cataract and intraocular lens implant of the right eye. PREOPERATIVE DIAGNOSIS: Nuclear sclerosis. Posterior subcapsular cataract. POSTOPERATIVE DIAGNOSIS: Nuclear sclerosis. Posterior subcapsular cataract. OPERATION: Clear cornea phacoemulsification of cataract right OD eye. ESTIMATED BLOOD LOSS: Zero. SPECIMEN TAKEN: None. NARRATIVE: After obtaining the appropriate consent, the patient was brought to the Operating Room where the patient was placed under cardiac monitoring and prepped and draped in the usual sterile manner. At the 11 o'clock position a 15 degree super sharp blade was used to create a paracentesis followed by instillation of 1% Xylocaine MPF 50:50 mix with BSS into the anterior chamber. This was followed by Amvisc to stabilize the anterior chamber. At the 9 o'clock position a self-sealing corneal flap incision was created using 2.8 mm miguel keratome. A cystotome was used to initiate a continuous tear capsulorrhexis which was completed with the Utrata forceps. A Binkhorst cannula was used to hydrodissect the lens nucleus followed by hydrodelineation. Phacoemulsification of the lens was performed utilizing phacochop in 12.28 seconds at 13% power. The remaining cortical material was removed using the irrigation aspiration mode followed by additional 1% Xylocaine MPF into the anterior chamber followed by viscoelastic to stabilize the capsular bag. A [employer] MX 60E 20.0 diopter posterior chamber lens was placed into the capsular bag without difficulty. The remaining viscoelastic material was removed from the anterior chamber with the irrigation/aspiration. Balanced salt solution was used to normalize the intraocular pressure. The incision was checked for watertight integrity. The patient then received two drops of 0.5% timolol followed by two drops Vigamox, was lightly patched and shielded in the usual manner. There were no complications from the procedure. The patient tolerated the procedure well and was returned to recovery in good condition. MMODL / IJN: [id number] /
== END 2022-01-10 10:15 | disposition home or self-care (01) ==
LOC: OR 06:48
PROVIDERS: ATTEND Ophthalmology
DX: H25.11 Age-related nuclear cataract, right eye (principal); E11.36 Type 2 diabetes mellitus with diabetic cataract; Z79.899 Other long term (current) drug therapy; Z79.4 Long term (current) use of insulin; H43.392 Other vitreous opacities, left eye; H00.023 Hordeolum internum right eye, unspecified eyelid; H25.043 Posterior subcapsular polar age-related cataract, bilateral; H00.026 Hordeolum internum left eye, unspecified eyelid; H52.223 Regular astigmatism, bilateral; H52.4 Presbyopia; H52.13 Myopia, bilateral; Z96.1 Presence of intraocular lens; Z98.42 Cataract extraction status, left eye; Z95.1 Presence of aortocoronary bypass graft; Z95.2 Presence of prosthetic heart valve; Z98.890 Other specified postprocedural states; M19.90 Unspecified osteoarthritis, unspecified site; M10.9 Gout, unspecified; Z79.82 Long term (current) use of aspirin; Z79.890 Hormone replacement therapy; I25.10 Atherosclerotic heart disease of native coronary artery without angina pectoris; I25.2 Old myocardial infarction; I10 Essential (primary) hypertension; E78.5 Hyperlipidemia, unspecified; E07.9 Disorder of thyroid, unspecified; I12.9 Hypertensive chronic kidney disease with stage 1 through stage 4 chronic kidney disease, or unspecified chronic kidney disease; E11.22 Type 2 diabetes mellitus with diabetic chronic kidney disease; N18.4 Chronic kidney disease, stage 4 (severe); G43.909 Migraine, unspecified, not intractable, without status migrainosus; E11.40 Type 2 diabetes mellitus with diabetic neuropathy, unspecified; Z82.1 Family history of blindness and visual loss; Z83.518 Family history of other specified eye disorder; Z82.61 Family history of arthritis; Z83.3 Family history of diabetes mellitus; Z82.49 Family history of ischemic heart disease and other diseases of the circulatory system; Z84.1 Family history of disorders of kidney and ureter; Z80.9 Family history of malignant neoplasm, unspecified; Z82.79 Family history of other congenital malformations, deformations and chromosomal abnormalities; Z88.6 Allergy status to analgesic agent
CPT/HCPCS: 66984; C1780; J2250; J0171; J3010; J2001

== ENCOUNTER 2022-07-26 13:37 | Day surgery (SDC) | payer MEDICARE ==
[2022-07-25 11:44] VITALS: BMI 28.2
--- NOTE | 2022-07-26 03:50 | HP ---
HISTORY AND PHYSICAL DATE OF SURGERY: 07/26/2022. HISTORY OF PRESENT ILLNESS: Josué Diaz is a 76-year-old gentleman seen with progressive right knee pain. We discussed options for treatment. He elected to proceed with right knee arthroscopy. Consent was obtained. Cardiac clearance was provided. PAST MEDICAL HISTORY: Cardiovascular disease, hypertension, hypothyroidism, hyperlipidemia, and insulin- dependent diabetes. PAST SURGICAL HISTORY: Shoulder arthroscopy, lumbar spine surgery, patellar tendon repair, carpal tunnel release, mitral valve replacement, pacemaker insertion. MEDICATIONS: Daily medications, 1. Meclizine. 2. Atorvastatin. 3. Colchicine. 4. Hydrochlorothiazide. 5. Levothyroxine. 6. Metoprolol. 7. Novolin insulin. ALLERGIES: None. SOCIAL HISTORY: Denies tobacco use. PHYSICAL EVALUATION OF THE RIGHT KNEE: Range of motion is negative 3/4 to 110. Mild effusion. Tenderness, medial joint line. Positive medial Cruz's. Ligaments stable. Hip rotation without pain. Distal neurovascular exam intact. RADIOGRAPHS: Right knee radiographs revealed moderate osteoarthritis. IMPRESSION: 1. Internal derangement of right knee with medial meniscal tear. 2. Right knee osteoarthritis. 3. Hypertension. 4. Hyperlipidemia. 5. Insulin-dependent diabetes. 6. Cardiovascular disease. PLAN: Right knee arthroscopy with partial medial meniscectomy and debridement. MMODL / IJN: [id number] /
[~2022-07-26 13:37] MED LIST changes: +DEXAMETHASONE SOD PHOSPHATE 4 MG/ML 1 ML VIAL IV ONE; +HYDROmorphone 0.5 MG/0.5 ML SYRINGE IVP PRN; +MIDAZOLAM 2 MG/2 ML VIAL IV PRN; +ONDANSETRON 4 MG/2 ML VIAL IVP ONE; -TETRACAINE 0.5% OPHTH (PF) DROPS 4 ML BTL OP PRN
[2022-07-26 14:26] LABS: Glucose,Whole Blood 98 mg/dL (70-110)
[2022-07-26] MEDS ORDERED: ONDANSETRON 4 MG/2 ML VIAL IVP ONE (14:27)
[2022-07-26] MEDS ORDERED: DEXAMETHASONE SOD PHOSPHATE 10 MG/ML 1 ML VIAL IVP ONE (14:27)
[2022-07-26 14:38] LABS: Albumin 4.2 g/dL (3.5-5.0); Calcium 9.1 mg/dL (8.4-10.2); Total Bilirubin 0.7 mg/dL (0.2-1.3); Total Protein 7.2 g/dL (6.3-8.2)
[2022-07-26 14:43] LABS: Potassium 5.6 mmol/L (3.5-5.1)
[2022-07-26] MEDS ORDERED: BUPIVACAINE (PF) 0.25% 30 ML VIAL SQ ONE ×2 (15:04→15:50)
[2022-07-26] MEDS ORDERED: ePHEDrine 50 MG/ML 1 ML VIAL ONE (15:11)
[2022-07-26] MEDS ORDERED: PROPOFOL 10 MG/ML 20 ML VIAL IV ONE (15:11)
[2022-07-26] MEDS ORDERED: fentaNYL (PF) 50 MCG/ML 2 ML AMP ONE (15:11)
[2022-07-26] MEDS ORDERED: MIDAZOLAM 2 MG/2 ML VIAL ONE (15:11)
[2022-07-26 16:21] VITALS: TEMP 97
[2022-07-26 17:38] VITALS: RESP 20
[2022-07-26 18:51] VITALS: BP 174/77; PULSE 60
--- NOTE | 2022-07-26 22:02 | OP ---
OPERATIVE REPORT PREOPERATIVE DIAGNOSIS: Internal derangement, right knee. POSTOPERATIVE DIAGNOSES: 1. Medial and lateral meniscal tears, right knee. 2. Reactive synovitis of medial, lateral, and suprapatellar compartments, right knee. PROCEDURES PERFORMED: 1. Arthroscopic partial medial and lateral meniscectomy, right knee. 2. Arthroscopic partial synovectomy of medial, lateral, and suprapatellar compartments, right knee. ANESTHESIA: Spinal. COMPLICATIONS: None. ESTIMATED BLOOD LOSS: 7 mL. CONDITION: The patient tolerated the procedure well. INDICATIONS FOR PROCEDURE: Josué Diaz is a 76-year-old gentleman seen with progressive right knee pain. We discussed options. He elected to proceed with arthroscopy. Consent was obtained. DESCRIPTION OF PROCEDURE: The patient was taken to the operative suite. He underwent a spinal anesthetic by Department of Anesthesia. He was given preoperative IV antibiotics. Right lower extremity was placed in a well-padded arthroscopic leg joseph. Right lower extremity was prepped and draped in normal sterile orthopedic fashion. Lateral parapatellar incision was made. Trocar was inserted. Arthroscopy was initiated. Suprapatellar pouch revealed thick reactive synovitis. There were some grade 1/2 chondromalacia changes of the patellofemoral joint with no tears. The scope and probe were guided into the medial gutter. No loose bodies. The scope and probe were guided into the medial compartment. Medial parapatellar incision was made. Trocar was inserted followed by a probe. There were complex tears involving the anterior, midbody, and posterior horns of the medial meniscus. There were grade 1/2 chondromalacia changes of the medial compartment, some thick reactive synovitis anteriorly. I performed a partial medial meniscectomy getting down to stable meniscal tissue. I performed a partial synovectomy decompressing the reactive synovitis. The residual meniscus was probed and was found to be stable. There was good decompression of the synovitis. The scope and probe were guided into the intercondylar notch. ACL was identified, probed, stable. The scope and probe were guided into the lateral compartment. There was a radial tear involving the midbody and posterior horns of the lateral meniscus. No significant chondromalacia. Some thick reactive synovitis anteriorly. I performed a partial lateral meniscectomy getting down to stable meniscal tissue. I performed a partial synovectomy decompressing the reactive synovitis. The shaver was removed. The residual meniscus was probed and was found to be stable. There was good decompression of the synovitis. I now guided the scope back into the suprapatellar compartment. I introduced a motorized shaver and debrided out some piecemeal fragments of meniscus I encountered. I performed a partial synovectomy. The shaver was removed. There was good decompression of the synovitis. I took one more look around the entire knee. No residual debris. Instruments were now removed from the knee. The portal sites were approximated with Steri-Strips. The joint was infiltrated with 0.25% plain Marcaine. Sterile dressings were applied followed by a BRICE hose. The patient was awakened and transferred to Recovery in stable condition having tolerated the procedure well. MMODL / IJN: [id number] /
== END 2022-07-26 18:38 | disposition home or self-care (01) ==
LOC: OR 13:37
PROVIDERS: ATTEND Orthopaedic Surgery
DX: M17.11 Unilateral primary osteoarthritis, right knee (principal); M23.300 Other meniscus derangements, unspecified lateral meniscus, right knee; M25.561 Pain in right knee; M94.261 Chondromalacia, right knee; M65.861 Other synovitis and tenosynovitis, right lower leg; I10 Essential (primary) hypertension; E78.5 Hyperlipidemia, unspecified; E03.9 Hypothyroidism, unspecified; I25.10 Atherosclerotic heart disease of native coronary artery without angina pectoris; M25.469 Effusion, unspecified knee; E07.9 Disorder of thyroid, unspecified; I25.2 Old myocardial infarction; E11.9 Type 2 diabetes mellitus without complications; Z95.1 Presence of aortocoronary bypass graft; Z79.4 Long term (current) use of insulin; Z98.890 Other specified postprocedural states; Z95.2 Presence of prosthetic heart valve; Z95.0 Presence of cardiac pacemaker; Z79.899 Other long term (current) drug therapy
CPT/HCPCS: 29880; 80053; J2250; J1100; J0690; J2405; J3010; J2704; J1170

== ENCOUNTER → 2023-11-04 | Outpatient (CLI) | payer MEDICARE ==
--- NOTE | 2023-11-04 08:34 | US ---
EXAMINATION TYPE: US duplex aorta DATE OF EXAM: 11/04/2023 COMPARISON: NONE CLINICAL INDICATION: Male, 77 years old with history of I74.40 AAA SCR; TECHNIQUE: Multiple sonographic images of the abdominal aorta are obtained. FINDINGS: EXAM MEASUREMENTS: Abdominal Aorta: Proximal: 2.4 x 2.2 cm Mid: 2.0 x 1.9 cm Distal: 1.9 x 1.6 cm Bifurcation: Right Illiac: 1.1 x 1.2 cm Left Illiac: 1.1 x 1.3 cm LOSS PREVENTION AGENT NOTES: No evidence of AAA; atherosclerotic changes noted throughout IMPRESSION: 1. No abdominal aortic aneurysm on screening ultrasound
== END | disposition home or self-care (01) ==
LOC: RADUSWWP 07:49
DX: I71.40 Abdominal aortic aneurysm, without rupture, unspecified (principal)
CPT/HCPCS: 93979

== ENCOUNTER → 2024-03-17 | Outpatient (CLI) | payer MEDICARE ==
--- NOTE | 2024-03-17 13:24 | XR ---
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 Bending and flexion views were also performed. FINDINGS: No evidence of any acute osseous pathology. No abnormal alignment bending flexion views. T here is straightened appearance of the spine on both flexion and extension views. No evidence of loss of vertebral body height is seen. There is straightened alignment of the lumbar vertebral bodies. Mi ld scattered disc space narrowing. Multilevel marginal osteophyte formation throughout the visualized spine. There is facet joint arthropathy throughout the spine. There is moderate neural foraminal jennifer nosis at L5-S1. Atherosclerosis of the arterial vasculature. IMPRESSION: 1. No acute fracture. 2. Moderate multilevel disc degeneration. No foraminal stenosis worse at L5-S1 and L4-L5.
== END | disposition home or self-care (01) ==
LOC: RADXRMAIN 12:34
PROVIDERS: ATTEND Internal Medicine
DX: M51.36 Other intervertebral disc degeneration, lumbar region (principal); M47.16 Other spondylosis with myelopathy, lumbar region
CPT/HCPCS: 72114

== ENCOUNTER → 2024-03-24 | Outpatient (CLI) | payer MEDICARE ==
--- NOTE | 2024-03-30 11:44 | CT ---
EXAMINATION TYPE: CT lumbar spine wo con CT DLP: 1127.7 mGycm, Automated exposure control for dose reduction was used. DATE OF EXAM: 03/24/2024 1:59 PM COMPARISON: . 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 Soft tissue and bone windows in coronal and sagittal planes were obtained and reviewed. 3-D ref ormats of the bones were created on a separate workstation and submitted for review. Contrast used: mL of , (None, if empty). Oral contrast used: (None, if empty). FINDINGS: Alignment: There are 5 lumbar type vertebral bodies within normal alignment. Vertebral body heights are intact. Multilevel degenerative disc disease with vacuum disc phenomenon throughout the lumbar sp ine discs. Right L3-4, L4-5 and L5-S1 moderate to severe neural foraminal stenosis from facet joint arthritis, s pondylosis and disc osteophyte complexes. Moderate left pelvic 3-4 neural foraminal stenosis. Diffuse disc bulge and disc osteophyte at L3-4 narrows central canal to 8 mm. Discs: L2-L3: Diffuse disc bulge, mild central canal stenosis. L3-L4: Diffuse disc bulge and disc osteophyte complex. No stenosis. IMPRESSION: 1. No evidence for spinal fracture. 2. Multilevel right neural foraminal stenosis.
== END | disposition home or self-care (01) ==
LOC: RADCTMAIN 13:16
PROVIDERS: ATTEND Internal Medicine
DX: M99.73 Connective tissue and disc stenosis of intervertebral foramina of lumbar region (principal); M47.16 Other spondylosis with myelopathy, lumbar region
CPT/HCPCS: 72131

== ENCOUNTER → 2024-05-13 | Outpatient (CLI) | payer MEDICARE ==
[2024-05-13 11:10] VITALS: BP 156/71; PULSE 66; RESP 16
--- NOTE | 2024-05-13 14:52 | P.PAINPG ---
PQRS Measure Charge Sheet History and Exam Findings: All other causes of pain ruled out Comment: HISTORY OF PRESENT ILLNESS: A 78 yr old male w at side as a referral from Dr Bartlett presents today w severe and chronic LBP > 5 yrs secondary to post laminectomy syndrome for evaluation. Pt states pain level is provoked at 9 /10 in intensity, constant, localized in the lumbar spine, predominantly axial, achy in character w occasional shooting pain towards the RLE. Pain is provoked by bending or standing for periods > 10 min. Pain is alleviated by physician guided home stretches daily since Dec 2023, heat, ice, medications (Neurontin, Tyl), topical BioFreeze gel, use of a cane for ambulatory assistance, repositioning and rest . Oswestry axial pain score at 37. PMH: OA, SLE, CAD, Melanoma, IDDM II, [place], Hyperlipidemia, Hypertension, [place] (2015), CKD III, Hypothyroid Disorder, BL Cataracts PSH: Melanoma Resection from UE & Scalp, Lumbar Surgery, Cardiac Catheterization w CABG x4 (2015), Valve Replacement (2020), BL CTR, L 4th Digit Trigger Finger Release, R Patellar Tendon Repair, BL Shoulder RCR, Colonoscopies/ EGDs SH: and lives w spouse. Negative x3. War Veteral [id number]. Use of a cane for ambulatory assistance. FH: Mo- [place] (40s). Fa- [place] at age 89/ . Sis- Squamous and Basal Cell CA All: See list Meds: See list REVIEW OF ORGAN SYSTEMS: CONSTITUTIONAL: No fevers or chills. No recent weight loss. NEUROLOGICAL: + numbness and tingling along the distal extremities. No seizure disorders or headaches. MUSCULOSKELETAL: + pain PSYCHIATRIC: Denies current depression or suicidal thoughts. Physical Examinations : Constitutional : Cooperative , not in acute distress . Neurologic : Cranial nerve II to XII intact. No focal neurological deficits. Psychiatric : alert & oriented x 3. Matching mood & appropriate affect. Judgment & insight intact. Musculoskeletal : Cervical Spine Motor strength in the deltoid and biceps: Normal right side. Normal Left side Motor strength biceps and the wrist extensors: Normal right side . Normal left side Motor strength in the triceps muscle: Normal right side. Normal left side Deep tendon reflexes: Normal at the biceps. Normal at Brachioradialis. Normal at triceps Vertebral body tenderness to deep palpation over L3 Bojorquez test positive R L3-L4 Cervical facet loading test: positive bilaterally Spurling test: positive bilaterally Neck distraction test: positive bilaterally Juan sign: positive bilaterally Lumbar spine Motor strength lower extremities ,thigh and legs 5/5 Right side , 5/5 Left side Deep tendon reflexes : Normal Knee Jerk. Normal Ankle Jerk Vertebral body tenderness over Bojorquez Test positive Lumbar facet Loading Test: positive Right / positive Left Range of motion of the lumbar spine Flexion 30 degrees, extension 10 degrees Straight Leg Raise test: Left/ Right positive at degrees Arleth test: positive right / positive left. Severe tenderness over the Sacroiliac joint on the Right / Left sides Gaenslen test: positive bilaterally Seated flexion test: positive bilaterally. Sacral spine : Severe tenderness over the Sacroiliac joint: right side / left side Range of motion: Flexion of the lumbar spine <60 degrees Range of motion: Extension of the lum bar spine <20 degrees Gaenslen's Test positive Arleth test: positive right side / left side Thigh Thrust Test Sacral Thrust Test Imaging: CT non contrast of the lumbar spine from 03/24/24 reviewed Assessment/ Plan : Lumbar post laminectomy syndrome Recommendation of R TFESI L3-L4 #1. May need a series of injections for optimal pain relief. Risks, benefits of procedure discussed and patient verbalized understanding. Admits to anti- coagulant use or medical history of diabetes. Protocol for discontinuation/ continuation of medications rodriguez procedure discussed. All questions answered. I have spent greater than 30 minutes on patient care today. Dr Dillon was available by phone for the evaluation of this patient. The time was used to review the medical records including relevant urine studies and Prescription history (MAPs), review of the available imaging, evaluation and examination of the patient, coordination of care with the medical staff and if applicable referring physicians, as well as creation of the medical record PQRS Narrative: Smoking Status Never smoker Home Medications: Ambulatory Orders Levothyroxine Sodium [Synthroid] 100 mcg PO QAM 08/28/16 allopurinoL [Zyloprim] 100 mg PO DAILY 08/28/16 Cholecalciferol (Vitamin D3) [Vitamin D3] 125 mcg PO DAILY 12/15/18 Colchicine 0.6 - 1.2 mg PO DIRECTED PRN 12/15/18 Atorvastatin Calcium [Lipitor] 40 mg PO HS 06/27/20 Hydroxychloroquine Sulfate [Plaquenil] 200 mg PO BID 06/27/20 hydrALAZINE HCL [Apresoline] 50 mg PO TID 07/10/20 Bumetanide [BUMEX] 4 mg PO BID 10/11/21 Gabapentin [Neurontin] 400 mg PO QID 10/11/21 Metoprolol Tartrate [Lopressor] 50 mg PO BID 10/11/21 Aspirin 81 mg PO DAILY 12/08/21 Insulin NPH Hum/Reg Insulin Hm [NovoLIN 70-30 100 UNIT/ML VIAL] 30 unit SQ HS 12/08/21 Insulin NPH Hum/Reg Insulin Hm [NovoLIN 70-30 100 UNIT/ML VIAL] 40 unit SQ QAM 12/08/21 Meclizine HCl 25 mg PO TID PRN 12/08/21 Ondansetron [Zofran] 4 mg PO DAILY PRN 12/08/21 HYDROcodone/APAP 7.5-325MG [[place] 7.5] 1 each PO Q6HR PRN #28 tab 07/26/22 Controlled Substance Measures - Controlled Substance Measures Is patient prescribed a controlled substance at discharge?: No
== END ==
LOC: PNWHC3 10:07
PROVIDERS: ATTEND Specialist
DX: M51.36 Other intervertebral disc degeneration, lumbar region (principal); M47.16 Other spondylosis with myelopathy, lumbar region; M96.1 Postlaminectomy syndrome, not elsewhere classified; Z88.6 Allergy status to analgesic agent
CPT/HCPCS: 99211

== ENCOUNTER 2024-07-07 07:24 | Day surgery (SDC) | payer MEDICARE ==
[2024-07-07] MEDS ORDERED: DEXAMETHASONE SOD PHOSPHATE 10 MG/ML 1 ML VIAL ONE (08:44)
[2024-07-07] MEDS ORDERED: IOPAMIDOL M200 10 ML VIAL ONE (08:44)
--- NOTE | 2024-08-18 18:20 | FL ---
EXAMINATION TYPE: FL guided pain mgmt statistic DATE OF EXAM: 07/21/2024 4:16 PM COMPARISON: Pre Operative Images if available both CT/MRI or plain film CLINICAL INDICATION: Male, 78 years old with history of RIGHT TRANSFORAMINLA; TECHNIQUE: FL guided pain mgmt statistic, multiple fluoroscopic images provided for procedure. Total fluoroscopy time: 17.9 seconds Total submitted images to PACS: 1 DAP: [id number] mGym2 Gycm2 uGym2 cGycm2 or equivalent. FINDINGS: Fluoroscopic images during injection for pain management demonstrate multilevel degeneration changes throughout the spine. No evidence for fracture. No acute process identified. IMPRESSION: 1. No evidence for intraoperative complication. 2. Please see the operative/procedural note for further details. [facility], , 08/18/2024 6:18 PM
== END 2024-07-07 09:30 ==
LOC: ORPAIN 07:24
PROVIDERS: ATTEND Hospitalist
DX: M51.16 Intervertebral disc disorders with radiculopathy, lumbar region (principal); Z79.82 Long term (current) use of aspirin; Z79.899 Other long term (current) drug therapy; Z88.8 Allergy status to other drugs, medicaments and biological substances
CPT/HCPCS: 64483

== ENCOUNTER → 2024-07-27 | Outpatient (CLI) | payer MEDICARE ==
[2024-07-27 12:07] VITALS: BP 171/81; PULSE 77; RESP 16; TEMP 97.3
--- NOTE | 2024-07-27 13:36 | P.PAINPG ---
PQRS Measure Charge Sheet Comment: HISTORY OF PRESENT ILLNESS: A 78 yr old male w at side presents today w severe and chronic LBP > 5 yrs secondary to post laminectomy syndrome for evaluation s/p R TFESI L3-L4 #1. Pt states he experienced 40% pain relief s/p procedure. Pt states pain level is provoked at 8 /10 in intensity, constant, localized in the lumbar spine, predominantly axial, achy in character w occasional shooting pain towards the RLE. Pain is provoked by bending or standing for periods > 10 min. Pain is alleviated by physician guided home stretches daily since Dec 2023, heat, ice, medications, topical, use of a walker and cane for ambulatory assistance, repositioning and rest . Interventional procedures include R TFESI L3-L4 x1 Medications include Neurontin, Tyl, BioFreeze Gel REVIEW OF ORGAN SYSTEMS: CONSTITUTIONAL: No fevers or chills. No recent weight loss. NEUROLOGICAL: + numbness and tingling along the distal extremities. No seizure disorders or headaches. MUSCULOSKELETAL: + pain PSYCHIATRIC: Denies current depression or suicidal thoughts. Physical Examinations : Constitutional : Cooperative , not in acute distress . Neurologic : Cranial nerve II to XII intact. No focal neurological deficits. Psychiatric : alert & oriented x 3. Matching mood & appropriate affect. Judgment & insight intact. Musculoskeletal : Lumbar Spine Motor strength in the deltoid and biceps: Normal right side. Normal Left side Motor strength biceps and the wrist extensors: Normal right side . Normal left side Motor strength in the triceps muscle: Normal right side. Normal left side Deep tendon reflexes: Normal at the biceps. Normal at Brachioradialis. Normal at triceps Vertebral body tenderness to deep palpation over L3 Bojorquez test positive R L3-L4 Lumbar facet Loading Test: positive Right / positive Left Range of motion of the lumbar spine Flexion 30 degrees, extension 10 degrees Straight Leg Raise test: Left/ Right positive at degrees Arleth test: positive right / positive left. Severe tenderness over the Sacroiliac joint on the Right / Left sides Gaenslen test: positive bilaterally Seated flexion test: positive bilaterally. Sacral spine : Severe tenderness over the Sacroiliac joint: right side / left side Range of motion: Flexion of the lumbar spine <60 degrees Range of motion: Extension of the lumbar spine <20 degrees Gaenslen's Test positive Arleth test: positive right side / left side Thigh Thrust Test Sacral Thrust Test Imaging: CT non contrast of the lumbar spine from 03/24/24 reviewed Assessment/ Plan : Lumbar post laminectomy syndrome Will manage residual pain and may RTC on an as needed basis. All questions answered. I have spent greater than 30 minutes on patient care today. Dr Dillon was available by phone for the evaluation of this patient. The time was used to review the medical records including relevant urine studies and Prescription history (MAPs), review of the available imaging, evaluation and examination of the patient, coordination of care with the medical staff and if applicable referring physicians, as well as creation of the medical record PQRS Narrative: Smoking Status Never smoker Hx Alcohol Use (MH) No Home Medications: Ambulatory Orders Levothyroxine Sodium [Synthroid] 100 mcg PO QAM 08/28/16 allopurinoL [Zyloprim] 100 mg PO DAILY 08/28/16 Cholecalciferol (Vitamin D3) [Vitamin D3] 125 mcg PO DAILY 12/15/18 Colchicine 0.6 - 1.2 mg PO DIRECTED PRN 12/15/18 Atorvastatin Calcium [Lipitor] 40 mg PO HS 06/27/20 Hydroxychloroquine Sulfate [Plaquenil] 200 mg PO BID 06/27/20 hydrALAZINE HCL [Apresoline] 50 mg PO TID 07/10/20 Bumetanide [BUMEX] 4 mg PO BID 10/11/21 Gabapentin [Neurontin] 400 mg PO QID 10/11/21 Metoprolol Tartrate [Lopressor] 50 mg PO BID 10/11/21 Aspirin 81 mg PO DAILY 12/08/21 Insulin NPH Hum/Reg Insulin Hm [NovoLIN 70-30 100 UNIT/ML VIAL] 30 unit SQ HS 12/08/21 Insulin NPH Hum/Reg Insulin Hm [NovoLIN 70-30 100 UNIT/ML VIAL] 40 unit SQ QAM 12/08/21 Meclizine HCl 25 mg PO TID PRN 12/08/21 Ondansetron [Zofran] 4 mg PO DAILY PRN 12/08/21 HYDROcodone/APAP 7.5-325MG [[place] 7.5] 1 each PO Q6HR PRN #28 tab 07/26/22 Controlled Substance Measures - Controlled Substance Measures Is patient prescribed a controlled substance at discharge?: No
== END ==
LOC: PNWHC3 11:16
PROVIDERS: ATTEND Specialist
DX: M54.16 Radiculopathy, lumbar region
CPT/HCPCS: 99211